=== PATIENT | male | born 1955 | race Two or more races ===

== ENCOUNTER → 2019-04-15 | Outpatient (CLI) | payer BC ==
[2019-04-15 10:30] LABS: Basophils # (auto) 0 uL; Basophils % (auto) 0.8 % (0.0-2.0); Eosinophils # (auto) 0.2 uL; Eosinophils % (auto) 4.9 % (0.0-7.0); Hematocrit 45.3 % (41.0-53.0); Hemoglobin 15.5 g/dL (13.5-17.5); Lymphocytes % (auto) 45.1 % (10.0-50.0); Mean Corpuscular Hemoglobin 31.5 pg (28.0-32.0); Mean Corpuscular Hgb Conc. 34.3 g/dL (32.0-36.0); Mean Corpuscular Volume 92.1 fL (80.0-100.0); Monocytes # (auto) 0.6 uL; Monocytes % (auto) 13.1 % (0.0-12.0); Neutrophils # (auto) 1.6 uL; Neutrophils % (auto) 36.1 % (37.0-80.0); Nucleated Red Blood Cells % 0.1 %; Platelet Count (auto) 178 10^3/uL (140-450); Red Blood Cells 4.92 10^6/uL (4.5-5.90); Red Cell Distribution Width 13.7 % (11.8-14.3); White Blood Cell 4.4 10^3/uL (4.4-10.8)
[2019-04-15 11:06] LABS: Urine Bacteria NONE SEEN /hpf (None Seen); Urine Blood Negative /uL (Negative); Urine WBC 1 /hpf (0 - 3)
[2019-04-15 11:08] LABS: Potassium 3.7 mmol/L (3.5-5.1)
[2019-04-15 11:21] LABS: BUN/Creatinine Ratio 22.2; Bilirubin, Total 0.8 mg/dL (0.2-1.0); Calcium 9.1 mg/dL (8.5-10.1); Total Protein 7.8 g/dL (6.4-8.2)
== END | disposition home or self-care (01) ==
LOC: LAB 08:34
PROVIDERS: ATTEND Nurse Practitioner
DX: Z00.00 Encounter for general adult medical examination without abnormal findings (principal); E78.5 Hyperlipidemia, unspecified
CPT/HCPCS: 36415; 80053; 80061; 81001; 82306; 83036; 84153; 84443; 85025

== ENCOUNTER → 2019-09-24 | Outpatient (CLI) | payer BC ==
[2019-09-24 09:26] LABS: Basophils # (auto) 0.1 10 ^3/uL (0-0.2); Basophils % (auto) 1.2 % (0.0-2.0); Eosinophils # (auto) 0.3 10 ^3/uL (0-0.8); Hematocrit 43.7 % (41.0-53.0); Hemoglobin 14.9 g/dL (13.5-17.5); Lymphocytes # (auto) 1.9 10 ^3/uL (0.4-5.4); Lymphocytes % (auto) 42.4 % (10.0-50.0); Mean Corpuscular Hgb Conc. 34.1 g/dL (32.0-36.0); Monocytes # (auto) 0.6 10 ^3/uL (0-1.3); Monocytes % (auto) 13.8 % (0.0-12.0); Neutrophils # (auto) 1.6 10 ^3/uL (1.6-8.6); Neutrophils % (auto) 36.6 % (37.0-80.0); Platelet Count (auto) 169 10^3/uL (140-450); Red Blood Cells 4.65 10^6/uL (4.5-5.90); White Blood Cell 4.4 10^3/uL (4.4-10.8)
[2019-09-24 10:23] LABS: Albumin 3.7 g/dL (3.4-5.0); Potassium 4.6 mmol/L (3.5-5.1)
[2019-09-24 10:32] LABS: BUN/Creatinine Ratio 18.4; Bilirubin, Total 0.6 mg/dL (0.2-1.0); Total Protein 7.6 g/dL (6.4-8.2)
== END | disposition home or self-care (01) ==
LOC: LAB 09:02
PROVIDERS: ATTEND Nurse Practitioner
DX: Z00.00 Encounter for general adult medical examination without abnormal findings (principal); E78.5 Hyperlipidemia, unspecified
CPT/HCPCS: 36415; 80053; 80061; 82270; 84443; 85025

== ENCOUNTER 2020-07-25 16:44 | Inpatient (IN) | payer BC, OTHER ==
[~2020-07-25] VITALS: Ht 172.7 cm; Wt 183.0 kg
[2020-07-25] MEDS ORDERED: SODIUM CHLORIDE 0.9% 1,000 ML IVB ONE (17:30)
[2020-07-25 19:41] LABS: Basophils # (auto) 0 10 ^3/uL (0-0.2); Eosinophils # (auto) 0 10 ^3/uL (0-0.8); Hematocrit 46.8 % (41.0-53.0); Hemoglobin 15.8 g/dL (13.5-17.5); Lymphocytes # (auto) 0.5 10 ^3/uL (0.4-5.4); Lymphocytes % (auto) 3.4 % (10.0-50.0); Mean Corpuscular Hemoglobin 31.8 pg (28.0-32.0); Mean Corpuscular Hgb Conc. 33.8 g/dL (32.0-36.0); Mean Corpuscular Volume 94.1 fL (80.0-100.0); Monocytes # (auto) 1.9 10 ^3/uL (0-1.3); Monocytes % (auto) 12.4 % (0.0-12.0); Neutrophils # (auto) 13.1 10 ^3/uL (1.6-8.6); Neutrophils % (auto) 84.2 % (37.0-80.0); Platelet Count (auto) 196 10^3/uL (140-450); Red Blood Cells 4.97 10^6/uL (4.5-5.90); Red Cell Distribution Width 14.1 % (11.8-14.3); White Blood Cell 15.5 10^3/uL (4.4-10.8)
[2020-07-25 19:47] LABS: Albumin 3.8 g/dL (3.4-5.0); Anion Gap 6 (5-15); Blood Urea Nitrogen 24 mg/dL (7-18); Calcium 9.4 mg/dL (8.5-10.1); Carbon Dioxide 32 mmol/L (21-32); Chloride 97 mmol/L (98-107); Glucose 134 mg/dL (74-106); Magnesium 2.3 mg/dL (1.6-2.6); Potassium 3.6 mmol/L (3.5-5.1); Sodium 135 mmol/L (136-145)
[2020-07-25 19:55] LABS: Alanine Aminotransferase 115 U/L (16-61); Alkaline Phosphatase 164 U/L (45-117); Aspartate Aminotransferase 59 U/L (15-37); BUN/Creatinine Ratio 22.2; Bilirubin, Total 4.1 mg/dL (0.2-1.0); GFR African American 88 mL/min; GFR Non-African American 72 mL/min; Total Protein 9.2 g/dL (6.4-8.2)
[2020-07-25 20:21] LABS: INR 1.08 (0.9-1.15); Partial Thromboplastin Time 28.1 sec (23.0-31.2)
[2020-07-25] MEDS ORDERED: ONDANSETRON HCL 4 MG/2 ML VIAL IV ONE (20:45)
[2020-07-25] MEDS ORDERED: cefTRIAXone 1GM/50ML D5W 50 ML IV ONE (20:45)
[2020-07-25] MEDS ORDERED: MORPHINE SULF INJ 2 MG/ML SYRINGE 1ML IV ONE (20:45)
[2020-07-26] MEDS ORDERED: HYDROcodone-ACET 5/325MG TAB PO PRN (01:15)
[2020-07-26] MEDS ORDERED: DOCUSATE SOD 100 MG CAP PO PRN (01:15)
[2020-07-26] MEDS ORDERED: NITROGLYCERIN 0.4 MG SL TAB SL PRN (01:15)
[2020-07-26] MEDS ORDERED: ONDANSETRON HCL 4 MG/2 ML VIAL IV PRN (01:15)
[2020-07-26] MEDS ORDERED: ACETAMINOPHEN 325 MG TAB PO PRN (01:15)
[2020-07-26] MEDS ORDERED: MORPHINE SULFATE 4 MG/ML SYR/VIAL IV PRN (01:15)
[2020-07-26] MEDS ORDERED: MORPHINE SULF INJ 2 MG/ML SYRINGE 1ML IV PRN (01:15)
[2020-07-26] MEDS ORDERED: D5W/SOD CHLO 0.9% 1,000 ML IV SCH (01:15)
[2020-07-26 07:07] LABS: Basophils # (auto) 0 10 ^3/uL (0-0.2); Basophils % (auto) 0.1 % (0.0-2.0); Eosinophils # (auto) 0 10 ^3/uL (0-0.8); Eosinophils % (auto) 0.1 % (0.0-7.0); Hematocrit 43.6 % (41.0-53.0); Hemoglobin 15.1 g/dL (13.5-17.5); Lymphocytes # (auto) 0.7 10 ^3/uL (0.4-5.4); Mean Corpuscular Hemoglobin 32.3 pg (28.0-32.0); Mean Corpuscular Hgb Conc. 34.5 g/dL (32.0-36.0); Mean Corpuscular Volume 93.6 fL (80.0-100.0); Monocytes # (auto) 1.9 10 ^3/uL (0-1.3); Monocytes % (auto) 14.2 % (0.0-12.0); Neutrophils # (auto) 10.6 10 ^3/uL (1.6-8.6); Neutrophils % (auto) 80.6 % (37.0-80.0); Platelet Count (auto) 174 10^3/uL (140-450); Red Blood Cells 4.66 10^6/uL (4.5-5.90); White Blood Cell 13.1 10^3/uL (4.4-10.8)
[2020-07-26 07:41] LABS: Albumin 3.3 g/dL (3.4-5.0); Calcium 8.9 mg/dL (8.5-10.1); Potassium 3.3 mmol/L (3.5-5.1)
[2020-07-26 07:46] LABS: BUN/Creatinine Ratio 20.2; Bilirubin, Total 8.3 mg/dL (0.2-1.0); Total Protein 7.8 g/dL (6.4-8.2)
[2020-07-26] MEDS: cefTRIAXone 1GM/50ML D5W 50 ML IV SCH (09:30)
[2020-07-26] MEDS ORDERED: ENOXAPARIN SOD 40 MG/0.4 ML SYRINGE SC SCH (10:00)
[2020-07-26] MEDS ORDERED: FAMOTIDINE (10MG/ML) 2ML VL IV SCH (10:00)
[2020-07-26] MEDS ORDERED: POTASSIUM CHL 20 Meq TABLET PO ONE (10:15)
[2020-07-26] MEDS: FAMOTIDINE (10MG/ML) 2ML VL IV SCH (12:07)
[2020-07-26] MEDS: HEPARIN SODIUM (PORCINE) 5000 UNITS/ML 1ML VIAL SC SCH ×2 (12:07→23:41)
[2020-07-26] MEDS: metroNIDAZOLE 500MG/100ML 100 ML IV SCH ×2 (14:32→23:42)
[2020-07-27] MEDS: D5W/SOD CHL 0.45%/KCL 40MEQ 1,000 ML IV SCH ×3 (05:13→21:36)
[2020-07-27] MEDS: metroNIDAZOLE 500MG/100ML 100 ML IV SCH ×3 (05:13→20:04)
[2020-07-27 06:18] LABS: Basophils # (auto) 0.1 10 ^3/uL (0-0.2); Basophils % (auto) 0.7 % (0.0-2.0); Eosinophils # (auto) 0.1 10 ^3/uL (0-0.8); Eosinophils % (auto) 1.6 % (0.0-7.0); Hematocrit 41.8 % (41.0-53.0); Hemoglobin 14.2 g/dL (13.5-17.5); Lymphocytes # (auto) 0.5 10 ^3/uL (0.4-5.4); Lymphocytes % (auto) 6.7 % (10.0-50.0); Mean Corpuscular Hemoglobin 32.2 pg (28.0-32.0); Mean Corpuscular Volume 94.7 fL (80.0-100.0); Monocytes # (auto) 1.1 10 ^3/uL (0-1.3); Monocytes % (auto) 14.4 % (0.0-12.0); Neutrophils # (auto) 5.9 10 ^3/uL (1.6-8.6); Neutrophils % (auto) 76.6 % (37.0-80.0); Platelet Count (auto) 166 10^3/uL (140-450); Red Blood Cells 4.42 10^6/uL (4.5-5.90); Red Cell Distribution Width 14.1 % (11.8-14.3); White Blood Cell 7.7 10^3/uL (4.4-10.8)
[2020-07-27 06:55] LABS: Potassium 3.2 mmol/L (3.5-5.1)
[2020-07-27 07:02] LABS: Albumin 2.8 g/dL (3.4-5.0); BUN/Creatinine Ratio 28.2; Bilirubin, Total 4.6 mg/dL (0.2-1.0); Calcium 9.1 mg/dL (8.5-10.1); Total Protein 7.4 g/dL (6.4-8.2)
[2020-07-27] MEDS: cefTRIAXone 1GM/50ML D5W 50 ML IV SCH (09:00)
[2020-07-27] MEDS: HEPARIN SODIUM (PORCINE) 5000 UNITS/ML 1ML VIAL SC SCH ×2 (10:56→21:37)
[2020-07-27] MEDS: FAMOTIDINE (10MG/ML) 2ML VL IV SCH (11:00)
[2020-07-27 19:09] LABS: INR 1.01 (0.9-1.15); Partial Thromboplastin Time 28.2 sec (23.0-31.2)
[2020-07-27 20:00] VITALS: BP 117/76
[2020-07-27 22:00] VITALS: BP 117/74
[2020-07-28] MEDS: metroNIDAZOLE 500MG/100ML 100 ML IV SCH ×3 (04:07→20:07)
[2020-07-28 05:00] VITALS: BP 104/69
[2020-07-28] MEDS: D5W/SOD CHL 0.45%/KCL 40MEQ 1,000 ML IV SCH ×3 (05:21→21:49)
[2020-07-28] MEDS ORDERED: POVIDONE IODINE 10 % TOPICAL OINT 30GM TOP ONE (07:41)
[2020-07-28 08:00] VITALS: BP 93/58
[2020-07-28] MEDS: cefTRIAXone 1GM/50ML D5W 50 ML IV SCH (08:37)
[2020-07-28] MEDS: FAMOTIDINE (10MG/ML) 2ML VL IV SCH (10:00)
[2020-07-28] MEDS: HEPARIN SODIUM (PORCINE) 5000 UNITS/ML 1ML VIAL SC SCH ×2 (10:00→21:08)
[2020-07-28] MEDS ORDERED: BUPIVACAINE 0.5% MPF INJ 30ML SDV IJ ONE (10:38)
[2020-07-28] MEDS ORDERED: ceFAZolin 1GM/50ML 50 ML IV ONE (11:12)
[2020-07-28] MEDS ORDERED: HYDROmorphone HCL 2 MG/ML VL IV PRN ×2 (11:15)
[2020-07-28] MEDS ORDERED: ONDANSETRON HCL 4 MG/2 ML VIAL IV PRN (11:15)
[2020-07-28] MEDS ORDERED: NALOXONE HCL 0.4 MG/ML VIAL IV PRN (11:15)
[2020-07-28] MEDS ORDERED: SUCCINYLCHOLINE CHLORIDE 20 MG/ML 10ML VIAL IV ONE (11:26)
[2020-07-28] MEDS ORDERED: LIDOCAINE 1% (LOCAL ANESTH.) PF 5ml SDV ONE (11:26)
[2020-07-28] MEDS ORDERED: MIDAZOLAM HCL 1MG/1ML-2 ML VIAL ONE (11:28)
[2020-07-28] MEDS ORDERED: fentaNYL CITRATE 100 MCG/2 ML VL ONE (12:04)
[2020-07-28] MEDS ORDERED: GLYCOPYRROLATE 0.2 MG/ML 1ML VIAL ONE (12:43)
[2020-07-28] MEDS ORDERED: NEOSTIGMINE 1 MG/ML INJ (10mg/10ML VIAL) ONE (12:43)
[2020-07-28 16:00] VITALS: BP 112/76
[2020-07-28 20:00] VITALS: BP 102/65
[2020-07-28 21:00] VITALS: BP 102/65
[2020-07-29] MEDS: metroNIDAZOLE 500MG/100ML 100 ML IV SCH ×3 (04:16→19:47)
[2020-07-29] MEDS: D5W/SOD CHL 0.45%/KCL 40MEQ 1,000 ML IV SCH ×3 (04:22→23:35)
[2020-07-29 05:00] VITALS: BP 113/74
[2020-07-29 08:00] VITALS: BP 118/70
[2020-07-29] MEDS: cefTRIAXone 1GM/50ML D5W 50 ML IV SCH (09:30)
[2020-07-29] MEDS: FAMOTIDINE (10MG/ML) 2ML VL IV SCH (09:43)
[2020-07-29] MEDS: HEPARIN SODIUM (PORCINE) 5000 UNITS/ML 1ML VIAL SC SCH ×2 (09:54→22:33)
[2020-07-29 16:00] VITALS: BP 121/73
[2020-07-29 22:00] VITALS: BP 122/76
[2020-07-30] MEDS: metroNIDAZOLE 500MG/100ML 100 ML IV SCH ×2 (03:35→13:20)
[2020-07-30 05:00] VITALS: BP 126/78
[2020-07-30] MEDS: D5W/SOD CHL 0.45%/KCL 40MEQ 1,000 ML IV SCH ×2 (06:51→16:15)
[2020-07-30 08:17] VITALS: BP 125/87
[2020-07-30] MEDS: cefTRIAXone 1GM/50ML D5W 50 ML IV SCH (09:22)
[2020-07-30] MEDS: FAMOTIDINE (10MG/ML) 2ML VL IV SCH (09:23)
[2020-07-30] MEDS: HEPARIN SODIUM (PORCINE) 5000 UNITS/ML 1ML VIAL SC SCH (09:35)
[2020-07-30 15:22] VITALS: BP 125/87
== END 2020-07-30 17:15 | disposition home or self-care (01) | DRG 417 ==
LOC: ER 16:46 → OVERFLOW 07-26 01:06 → TELE-CENTR 07-27 17:53
PROVIDERS: ADMIT Nurse Practitioner Family; ATTEND Family Medicine
PROC: 0FT44ZZ Resection of Gallbladder, Percutaneous Endoscopic Approach (ICD-10-PCS; principal; 2020-07-28 11:54)
DX: K80.00 Calculus of gallbladder with acute cholecystitis without obstruction (principal); N17.0 Acute kidney failure with tubular necrosis; E86.0 Dehydration; R73.9 Hyperglycemia, unspecified; E78.00 Pure hypercholesterolemia, unspecified; E78.5 Hyperlipidemia, unspecified; E66.01 Morbid (severe) obesity due to excess calories; K76.0 Fatty (change of) liver, not elsewhere classified; Z20.822 Contact with and (suspected) exposure to COVID-19; Z82.49 Family history of ischemic heart disease and other diseases of the circulatory system
CPT/HCPCS: 36415; 71045; 74176; 74181; 76705; 78226; 80053; 82247; 83036; 83690; 83735; 84484; 85025; 85610; 85730; 86850; 86900; 86901; 93005; 93306; 96365; 96366; 96376; G0378; J0330; J0690; J0696; J2250; J2405; J3490; J7042

== ENCOUNTER → 2020-07-26 | Outpatient (CLI) | payer BC | END | disposition home or self-care (01) | LOC: LAB 15:53 | PROVIDERS: ATTEND Nurse Practitioner Family | DX: Z20.822 Contact with and (suspected) exposure to COVID-19 (principal); N39.0 Urinary tract infection, site not specified | CPT/HCPCS: 87426 ==

== ENCOUNTER → 2020-07-27 | Outpatient (CLI) | payer BC | END | disposition home or self-care (01) | LOC: LAB 06:58 | PROVIDERS: ATTEND Nurse Practitioner Family | DX: N39.0 Urinary tract infection, site not specified (principal) | CPT/HCPCS: 87086 ==

== ENCOUNTER → 2020-11-27 | Outpatient (CLI) | payer BC ==
[2020-11-27 08:57] LABS: Basophils # (auto) 0.1 10 ^3/uL (0-0.2); Basophils % (auto) 1.7 % (0.0-2.0); Eosinophils # (auto) 0.4 10 ^3/uL (0-0.8); Eosinophils % (auto) 7.8 % (0.0-7.0); Hematocrit 45.1 % (41.0-53.0); Hemoglobin 15.2 g/dL (13.5-17.5); Lymphocytes # (auto) 1.5 10 ^3/uL (0.4-5.4); Lymphocytes % (auto) 30.3 % (10.0-50.0); Mean Corpuscular Hemoglobin 31.6 pg (28.0-32.0); Mean Corpuscular Hgb Conc. 33.8 g/dL (32.0-36.0); Mean Corpuscular Volume 93.5 fL (80.0-100.0); Monocytes # (auto) 0.6 10 ^3/uL (0-1.3); Monocytes % (auto) 11.2 % (0.0-12.0); Neutrophils # (auto) 2.4 10 ^3/uL (1.6-8.6); Nucleated Red Blood Cells % 0.1 %; Platelet Count (auto) 186 10^3/uL (140-450); Red Blood Cells 4.83 10^6/uL (4.5-5.90); Red Cell Distribution Width 14.1 % (11.8-14.3)
[2020-11-27 08:59] LABS: Urine Bacteria NONE SEEN /hpf (None Seen); Urine Blood TRACE /uL (Negative); Urine Mucus FEW (None Seen); Urine Specific Gravity 1.021 (1.001-1.035); Urine WBC 2 /hpf (0 - 3)
[2020-11-27 09:32] LABS: Albumin 3.7 g/dL (3.4-5.0); Calcium 8.8 mg/dL (8.5-10.1); Potassium 3.8 mmol/L (3.5-5.1)
[2020-11-27 09:38] LABS: BUN/Creatinine Ratio 19.8; Bilirubin, Total 0.7 mg/dL (0.2-1.0); Total Protein 7.6 g/dL (6.4-8.2)
== END | disposition home or self-care (01) ==
LOC: LAB 08:46
PROVIDERS: ATTEND Nurse Practitioner
DX: I10 Essential (primary) hypertension (principal); E78.5 Hyperlipidemia, unspecified
CPT/HCPCS: 36415; 80053; 80061; 81001; 85025

== ENCOUNTER → 2022-02-11 | Outpatient (CLI) | payer OTHER ==
[2022-02-11 09:39] LABS: Urine Bacteria NONE SEEN /hpf (None Seen); Urine Blood TRACE /uL (Negative); Urine Specific Gravity 1.021 (1.001-1.035); Urine WBC 9 /hpf (0 - 3)
[2022-02-11 09:53] LABS: Basophils # (auto) 0 10 ^3/uL (0-0.2); Eosinophils # (auto) 0.2 10 ^3/uL (0-0.8); Hematocrit 44.2 % (41.0-53.0); Hemoglobin 14.8 g/dL (13.5-17.5); Lymphocytes # (auto) 1.7 10 ^3/uL (0.4-5.4); Lymphocytes % (auto) 37.1 % (10.0-50.0); Mean Corpuscular Hemoglobin 31.5 pg (28.0-32.0); Mean Corpuscular Hgb Conc. 33.5 g/dL (32.0-36.0); Mean Corpuscular Volume 93.9 fL (80.0-100.0); Monocytes # (auto) 0.6 10 ^3/uL (0-1.3); Monocytes % (auto) 13.8 % (0.0-12.0); Neutrophils % (auto) 43.1 % (37.0-80.0); Nucleated Red Blood Cells % 0.2 %; Red Blood Cells 4.71 10^6/uL (4.5-5.90); Red Cell Distribution Width 13.8 % (11.8-14.3); White Blood Cell 4.5 10^3/uL (4.4-10.8)
[2022-02-11 10:12] LABS: Albumin 3.6 g/dL (3.4-5.0); Calcium 8.7 mg/dL (8.5-10.1); Potassium 3.9 mmol/L (3.5-5.1)
[2022-02-11 10:16] LABS: Bilirubin, Total 0.7 mg/dL (0.2-1.0); Total Protein 7.5 g/dL (6.4-8.2)
== END | disposition home or self-care (01) ==
LOC: LAB 09:15
PROVIDERS: ATTEND Nurse Practitioner
DX: E78.5 Hyperlipidemia, unspecified (principal); I10 Essential (primary) hypertension
CPT/HCPCS: 36415; 80053; 80061; 81001; 84443; 85025

== ENCOUNTER → 2022-05-17 | Outpatient (CLI) | payer OTHER ==
[2022-05-17 14:22] LABS: Urine Bacteria NONE SEEN /hpf (None Seen); Urine Blood Negative /uL (Negative); Urine Specific Gravity 1.021 (1.001-1.035); Urine WBC 1 /hpf (0 - 3)
== END | disposition home or self-care (01) ==
LOC: LAB 13:13
PROVIDERS: ATTEND Nurse Practitioner
DX: N39.0 Urinary tract infection, site not specified (principal)
CPT/HCPCS: 81001

== ENCOUNTER → 2023-01-25 | Outpatient (CLI) | payer OTHER ==
[2023-01-25 09:26] LABS: Basophils # (auto) 0.1 10 ^3/uL (0-0.2); Basophils % (auto) 1.9 % (0.0-2.0); Eosinophils # (auto) 0.2 10 ^3/uL (0-0.8); Hematocrit 44.9 % (41.0-53.0); Hemoglobin 14.9 g/dL (13.5-17.5); Lymphocytes # (auto) 1.7 10 ^3/uL (0.4-5.4); Lymphocytes % (auto) 40.5 % (10.0-50.0); Mean Corpuscular Hemoglobin 31.2 pg (28.0-32.0); Mean Corpuscular Hgb Conc. 33.3 g/dL (32.0-36.0); Mean Corpuscular Volume 93.7 fL (80.0-100.0); Monocytes # (auto) 0.6 10 ^3/uL (0-1.3); Monocytes % (auto) 13.4 % (0.0-12.0); Neutrophils # (auto) 1.6 10 ^3/uL (1.6-8.6); Neutrophils % (auto) 39.2 % (37.0-80.0); Nucleated Red Blood Cells % 0.1 %; Red Blood Cells 4.79 10^6/uL (4.5-5.90); Red Cell Distribution Width 13.8 % (11.8-14.3); White Blood Cell 4.1 10^3/uL (4.4-10.8)
[2023-01-25 09:36] LABS: Urine Bacteria NONE SEEN /hpf (None Seen); Urine Blood Negative /uL (Negative); Urine Mucus FEW (None Seen); Urine Specific Gravity 1.024 (1.001-1.035); Urine WBC 3 /hpf (0 - 3)
[2023-01-25 10:47] LABS: Potassium 4.3 mmol/L (3.5-5.1)
[2023-01-25 10:59] LABS: Albumin 3.9 g/dL (3.4-5.0); BUN/Creatinine Ratio 19.6 (10.0-20.0); Bilirubin, Total 0.8 mg/dL (0.2-1.0); Calcium 9.2 mg/dL (8.5-10.1); Total Protein 7.8 g/dL (6.4-8.2)
== END | disposition home or self-care (01) ==
LOC: LAB 09:10
PROVIDERS: ATTEND Nurse Practitioner
DX: I10 Essential (primary) hypertension (principal); E78.5 Hyperlipidemia, unspecified
CPT/HCPCS: 36415; 80053; 80061; 81001; 82270; 84153; 84443; 85025

== ENCOUNTER → 2024-07-25 | Outpatient (CLI) | payer OTHER | END | disposition home or self-care (01) | LOC: LAB 09:09 | PROVIDERS: ATTEND Nurse Practitioner | DX: Z12.11 Encounter for screening for malignant neoplasm of colon (principal) | CPT/HCPCS: 82270 ==

== ENCOUNTER → 2024-10-25 | Day surgery (SDC) | payer OTHER ==
[2024-10-22 08:44] LABS: Basophils # (auto) 0.1 10 ^3/uL (0-0.2); Basophils % (auto) 1.8 % (0.0-2.0); Eosinophils # (auto) 0.5 10 ^3/uL (0-0.8); Eosinophils % (auto) 10.2 % (0.0-7.0); Hematocrit 44.9 % (41.0-53.0); Hemoglobin 15.4 g/dL (13.5-17.5); Lymphocytes # (auto) 1.7 10 ^3/uL (0.4-5.4); Lymphocytes % (auto) 33.6 % (10.0-50.0); Mean Corpuscular Hgb Conc. 34.4 g/dL (32.0-36.0); Monocytes # (auto) 0.7 10 ^3/uL (0-1.3); Neutrophils # (auto) 2.1 10 ^3/uL (1.6-8.6); Neutrophils % (auto) 41.4 % (37.0-80.0); Platelet Count (auto) 173 10^3/uL (140-450); Red Blood Cells 4.83 10^6/uL (4.5-5.90); Red Cell Distribution Width 13.6 % (11.8-14.3); White Blood Cell 5.2 10^3/uL (4.4-10.8)
[2024-10-22 08:58] LABS: Alanine Aminotransferase 15 U/L (7-40); Alkaline Phosphatase 113 U/L (46-116); Anion Gap 6 (5-15); Aspartate Aminotransferase 16 U/L (13-40); BUN/Creatinine Ratio 17.1 (10.0-20.0); Blood Urea Nitrogen 18 mg/dL (9-23); Calcium 9.8 mg/dL (8.7-10.4); Carbon Dioxide 28 mmol/L (20-31); Chloride 106 mmol/L (98-107); Sodium 140 mmol/L (136-145); Total Protein 7.6 g/dL (5.7-8.2)
[2024-10-22 08:59] LABS: Albumin 4.8 g/dL (3.2-4.8); Bilirubin, Total 0.7 mg/dL (0.2-1.0); Glucose 110 mg/dL (74-106)
[2024-10-22 09:04] LABS: INR 0.97 (0.9-1.15); Partial Thromboplastin Time 29.8 SEC (24.5-34.5); Prothrombin Time 10.3 sec (9.3-11.8)
[~2024-10-25] VITALS: Ht 172.7 cm; Wt 79.4 kg
[~2024-10-25] MED LIST: ATOR10TA52 PO; SODIUM CHLORIDE LOCK 10 ML ONE
[2024-10-25 13:09] VITALS: O2SAT 100
[2024-10-25] MEDS: diphenhdrAMINE HCL 50 MG/1 ML VL ONE (13:10)
[2024-10-25] MEDS: MIDAZOLAM HCL 5 MG/ML-1ML VIAL ONE (13:10)
[2024-10-25] MEDS: fentaNYL CITRATE 100 MCG/2 ML VL ONE (13:10)
[2024-10-25 13:45] VITALS: PULSE 69; RESP 17; TEMP 97.9; O2SAT 97
--- NOTE | 2024-10-25 14:04 | DVHOP2 ---
Operative Report DATE OF OPERATION: 10/25/24 PROCEDURE: Colonoscopy with hot snare polypectomy and Fernanda ink tattoo. PREOPERATIVE INDICATION: The patient is a 69 -year-old male undergoing colonoscopy for colon cancer screening POSTOPERATIVE DIAGNOSES: 1. Patient had a partially circumferential sigmoid polypoid growth that appeared to be suspicious for an early malignancy from which biopsies were obtained and the proximal and distal margins were injected with Fernanda ink 2. Patient had a 2.5 cm ascending colon polyp that was seen and removed via hot snare polypectomy and the specimens were retrieved 3. Patient had a 3-4 mm benign-appearing transverse colon polyp that was seen and removed by hot snare polypectomy 4. There was another 3-4 mm benign-appearing descending colon polyp that was seen and removed by hot snare polypectomy and the specimens were retrieved 5. 1+ internal hemorrhoids otherwise normal examination up to the cecum PROCEDURE PERFORMED BY: Romelia Max M.D. SCOPE: Olympus videocolonoscope. ASA CLASS: 2 PREOPERATIVE MEDICATIONS: Versed 5 mg, Fentanyl 100 mcg, Benadryl 50 mg PROCEDURE IN DETAIL: After obtaining an informed consent, the patient was placed on left lateral decubitus position. He was then sedated with the above medications. A rectal examination was performed that was normal. The colonoscope was then passed through the anus into the rectosigmoid and through the descending, transverse, and ascending colon up to the cecum with visualization of the appendiceal orifice, base of the cecum and the ileocecal valve. The colonoscope was then withdrawn. In the ascending colon there was a 2.5 cm benign-appearing polyp This was removed completely via hot snare polypectomy and the specimens were retrieved by pulling the colonoscope out The colonoscope was then passed back into the anus into the rectosigmoid and through the descending transverse colon up to the ascending colon The colonoscope was then withdrawn. In the mid transverse colon there was a 3-4 mm benign-appearing polyp that was seen and removed by hot snare polypectomy In the descending colon there was another 3-4 mm benign-appearing polyp that was seen and removed by hot snare polypectomy In the mid sigmoid at about 20 cm above the anal verge there was a partially circumferential polypoid growth which was bile lobe with central ulceration This was suspicious for an early malignant transformation of a polyp. Multiple biopsies were obtained and the proximal and distal margins were injected with Fernanda ink On retroflexion and straight on view he had 1+ internal hemorrhoids. The patient tolerated the procedure well without difficulty. WITHDRAWAL TIME: 17 minutes QUALITY OF THE PREP: [place] Bowel Prep score: 9. COMPLICATIONS : None SPECIMENS: Ascending colon polyp Transverse colon polyp Descending colon polyp Sigmoid colon polypoid growth biopsies DISPOSITION: Stable D/C to home PLAN: 1. Repeat colonoscopy base on biopsy result in 1-2 years 2. Resume GI soft diet advance as tolerated 3. Await biopsy results 4. Surgical referral for sigmoid resection 5. Check CT scan of the abdomen pelvis CEA level 6. Hold aspirin NSAIDs for 5-7 days ROMELIA MAX MD Oct 25, 2024 14:04
[2024-10-25 14:30] VITALS: BP 105/71; PULSE 63; RESP 17; O2SAT 95
== END | disposition home or self-care (01) ==
LOC: GI 09:25
PROVIDERS: ATTEND Internal Medicine Gastroenterology
DX: Z12.11 Encounter for screening for malignant neoplasm of colon (principal); D12.2 Benign neoplasm of ascending colon; D12.3 Benign neoplasm of transverse colon; D12.4 Benign neoplasm of descending colon; D12.5 Benign neoplasm of sigmoid colon; K64.8 Other hemorrhoids; K63.3 Ulcer of intestine; E78.00 Pure hypercholesterolemia, unspecified; Z90.49 Acquired absence of other specified parts of digestive tract; Z83.3 Family history of diabetes mellitus; Z79.899 Other long term (current) drug therapy
CPT/HCPCS: 36415; 45380; 45381; 45385; 80053; 85025; 85610; 85730; 88305; J1200; J2250; J3010; J7030; 99152; 99153

== ENCOUNTER → 2024-11-04 | Outpatient (CLI) | payer OTHER ==
[~2024-11-04] MED LIST changes: -SODIUM CHLORIDE LOCK 10 ML ONE
== END | disposition home or self-care (01) ==
LOC: LAB 07:35
PROVIDERS: ATTEND Internal Medicine Gastroenterology
DX: C18.7 Malignant neoplasm of sigmoid colon (principal)
CPT/HCPCS: 36415; 82565; 84520

== ENCOUNTER → 2024-11-11 | Outpatient (CLI) | payer OTHER ==
[2024-11-11 10:47] LABS: Basophils # (auto) 0.1 10 ^3/uL (0-0.2); Basophils % (auto) 1.8 % (0.0-2.0); Eosinophils # (auto) 0.3 10 ^3/uL (0-0.8); Eosinophils % (auto) 6.5 % (0.0-7.0); Hematocrit 46.8 % (41.0-53.0); Hemoglobin 15.9 g/dL (13.5-17.5); Lymphocytes # (auto) 1.6 10 ^3/uL (0.4-5.4); Mean Corpuscular Hemoglobin 31.3 pg (28.0-32.0); Mean Corpuscular Hgb Conc. 33.9 g/dL (32.0-36.0); Mean Corpuscular Volume 92.4 fL (80.0-100.0); Monocytes # (auto) 0.6 10 ^3/uL (0-1.3); Monocytes % (auto) 14.3 % (0.0-12.0); Neutrophils # (auto) 1.6 10 ^3/uL (1.6-8.6); Neutrophils % (auto) 38.4 % (37.0-80.0); Platelet Count (auto) 207 10^3/uL (140-450); Red Blood Cells 5.07 10^6/uL (4.5-5.90); White Blood Cell 4.2 10^3/uL (4.4-10.8)
[2024-11-11 11:06] LABS: Prostate Specific Antigen 2.46 ng/mL (0.0-4.0)
[2024-11-11 11:09] LABS: Alanine Aminotransferase 13 U/L (7-40); Albumin 4.9 g/dL (3.2-4.8); Alkaline Phosphatase 116 U/L (46-116); Anion Gap 8 (5-15); Aspartate Aminotransferase 16 U/L (13-40); BUN/Creatinine Ratio 15.1 (10.0-20.0); Bilirubin, Total 0.7 mg/dL (0.2-1.0); Blood Urea Nitrogen 14 mg/dL (9-23); Calcium 10.2 mg/dL (8.7-10.4); Carbon Dioxide 29 mmol/L (20-31); Carcinoembryonic Antigen 2.93 ng/mL (<=5.0); Chloride 101 mmol/L (98-107); Glucose 81 mg/dL (74-106); Potassium 4.3 mmol/L (3.5-5.1); Sodium 138 mmol/L (136-145); Total Protein 8.1 g/dL (5.7-8.2)
== END | disposition home or self-care (01) ==
LOC: LAB 10:14
PROVIDERS: ATTEND Student in an Organized Health Care Education/Training Program
DX: C18.7 Malignant neoplasm of sigmoid colon (principal)
CPT/HCPCS: 36415; 80053; 82378; 84153; 85025

== ENCOUNTER 2024-11-15 06:05 | Inpatient (IN) | payer OTHER ==
[2024-11-14 10:18] LABS: Urine Bacteria None Seen /hpf (None Seen)
[2024-11-14 10:30] LABS: Basophils # (auto) 0 10 ^3/uL (0-0.2); Basophils % (auto) 0.6 % (0.0-2.0); Eosinophils # (auto) 0.3 10 ^3/uL (0-0.8); Eosinophils % (auto) 4.5 % (0.0-7.0); Hematocrit 48.6 % (41.0-53.0); Hemoglobin 16.4 g/dL (13.5-17.5); Lymphocytes # (auto) 1.4 10 ^3/uL (0.4-5.4); Lymphocytes % (auto) 20.3 % (10.0-50.0); Mean Corpuscular Hemoglobin 31.1 pg (28.0-32.0); Mean Corpuscular Hgb Conc. 33.8 g/dL (32.0-36.0); Mean Corpuscular Volume 92.1 fL (80.0-100.0); Monocytes # (auto) 1.2 10 ^3/uL (0-1.3); Monocytes % (auto) 17.2 % (0.0-12.0); Neutrophils # (auto) 3.9 10 ^3/uL (1.6-8.6); Neutrophils % (auto) 57.4 % (37.0-80.0); Nucleated Red Blood Cells % 0.1 %; Platelet Count (auto) 198 10^3/uL (140-450); Red Blood Cells 5.28 10^6/uL (4.5-5.90); White Blood Cell 6.8 10^3/uL (4.4-10.8)
[2024-11-14 10:40] LABS: Urine Blood TRACE /uL (Negative); Urine Clarity Clear (Clear); Urine Color Yellow (Yellow); Urine Mucus FEW (None Seen); Urine Protein, UAD Negative (Negative); Urine Specific Gravity 1.023 (1.001-1.035); Urine Squamous Epithelial Cell FEW /hpf (<5); Urine Urobilinogen Normal (Negative); Urine WBC 1 /HPF (0-3)
[2024-11-14 10:46] LABS: INR 1.03 (0.9-1.15); Partial Thromboplastin Time 31.8 SEC (24.5-34.5); Prothrombin Time 10.9 sec (9.3-11.8)
[2024-11-14 10:56] LABS: Alanine Aminotransferase 16 U/L (7-40); Alkaline Phosphatase 131 U/L (46-116); Anion Gap 8 (5-15); Aspartate Aminotransferase 19 U/L (13-40); BUN/Creatinine Ratio 13.3 (10.0-20.0); Blood Urea Nitrogen 14 mg/dL (9-23); Calcium 10.3 mg/dL (8.7-10.4); Carbon Dioxide 27 mmol/L (20-31); Chloride 102 mmol/L (98-107); Glucose 88 mg/dL (74-106); Potassium 4.5 mmol/L (3.5-5.1); Sodium 137 mmol/L (136-145)
[2024-11-14 10:57] LABS: Bilirubin, Total 1.3 mg/dL (0.2-1.0)
[2024-11-15] VITALS (8 sets, daily range): BP systolic 111–121; BP diastolic 66–75; PULSE 78–90; RESP 16–20; TEMP 98.5–99.8; O2SAT 95–97
[~2024-11-15] VITALS: Ht 172.7 cm; Wt 81.6 kg
[2024-11-15] MEDS ORDERED: KETOROLAC TROMETH 30 MG/ML 1ML VIAL ONE (06:54)
[2024-11-15] MEDS ORDERED: ROCURONIUM 10MG/ML 10ML VIAL IV ONE (06:54)
[2024-11-15] MEDS ORDERED: LIDOCAINE 2% (LOCAL ANESTH.) PF 5ml SDV ONE (06:54)
[2024-11-15] MEDS ORDERED: LIDOCAINE HCL 2% TOP JELLY 5ML TOP ONE (06:54)
[2024-11-15] MEDS ORDERED: DexAMETHasone SOD PHOS 10MG/1ML VIAL INJ ONE ×2 (06:54→07:00)
[2024-11-15] MEDS ORDERED: GLYCOPYRROLATE 0.2 MG/ML 1ML VIAL ONE (06:54)
[2024-11-15] MEDS ORDERED: PROPOFOL 10 MG/ML 20 ML IV ONE (06:54)
[2024-11-15] MEDS ORDERED: ONDANSETRON HCL 4 MG/2 ML VIAL ONE (06:54)
[2024-11-15] MEDS ORDERED: SUGAMMADEX 200mg/2ml Vial (100MG/ML) IV ONE (06:57)
[2024-11-15] MEDS ORDERED: fentaNYL CITRATE 100 MCG/2 ML VL ONE (07:03)
[2024-11-15] MEDS ORDERED: KETAMINE 50mg/ML 1ml syringe ONE (07:03)
[2024-11-15] MEDS: GABAPENTIN 300 MG CAP PO ONE (07:15)
[2024-11-15] MEDS: CELECOXIB 100 MG CAP PO ONE (07:15)
[2024-11-15] MEDS: ACETAMINOPHEN IV 1000 MG/100ML (10MG/ML) IV ONE (07:15)
[2024-11-15] MEDS: BUPIVACAINE 0.25% INJ 50ML VIAL ONE (08:55)
[2024-11-15] MEDS: EPINEPHrine HCL 1 MG/1 ML AMP ONE (08:55)
[2024-11-15] MEDS: BUPIVACAINE 0.5% P/F INJ 10 ML VIAL ONE (08:56)
[2024-11-15] MEDS: LIDOCAINE W/ EPINEPHRINE 1% 20ML VIAL ONE (08:56)
[2024-11-15] MEDS: ceFAZolin 2 GM/D5W50ml 50 ML IV ONE (08:56)
--- NOTE | 2024-11-15 09:06 | DVHOP ---
DATE OF SURGERY: 11/15/2024 PREOPERATIVE DIAGNOSIS: Sigmoid cancer. POSTOPERATIVE DIAGNOSIS: Sigmoid colon cancer. SURGEON: Joseph Sousa MD PRESSURIZATION MECHANIC: Franklin Brush NP ANESTHESIA: General endotracheal, Blu Eugene MD PROCEDURES: * Exploratory laparotomy. Left hemicolectomy. * Descending colon rectostomy. DESCRIPTION OF PROCEDURE: Under general endotracheal anesthesia with the patient's skin prepped and draped, a midline incision was made and the abdomen was visually and manually explored. No evidence of metastatic disease was encountered in the right and the left lobe of the liver and the epigastric lymph nodes and the retroperitoneal lymph nodes on the mesentery. There was a palpable mass at the area that was tattooed by the endoscopist. The entire tattooed portion of the colon was included in the resection. The descending colon was mobilized by division along the white line of [place] and the rectosigmoid was mobilized by incision along the peritoneal reflection of the pelvis. The mesentery was divided between metallic clips and ligated. The bowel was transected above a right angle applied bowel clamp. The mucosa swabbed with Betadine sutures. Following removal of the specimen from the field, the anastomosis was accomplished utilizing 3-0 Prolene and 3-0 Monocryl sutures for the outer and inner layer respectively. The patient's mesenteric defect was approximated using 2-0 Monocryl suture. The bowel was returned back into its normal anatomical position. The abdomen was irrigated. Irrigant was aspirated. A 10-mm Carlo-Chung drain was placed to the vicinity but not abutting against the anastomosis and exteriorized separately and secured with a 2-0 nylon suture. Following assurance of complete hemostasis and an accurate needle and sponge count, the abdomen was closed using #1 double-stranded PDS suture and metallic skin daniel. The patient remained stable throughout the procedure, left the operating room following an accurate needle and sponge counts. The family was thoroughly informed in the waiting area. MD ZACHARY Field/JANET TID: [id number] RECEIPT: [id number]
[2024-11-15] MEDS ORDERED: NALOXONE HCL 0.4 MG/ML VIAL IV PRN (09:15)
[2024-11-15] MEDS ORDERED: HYDROmorphone HCL 2 MG/ML VL/or syr IV PRN (09:15)
[2024-11-15] MEDS ORDERED: FLUMAZENIL 0.1 MG/ML INJ 10ML MDV IV PRN (09:15)
[2024-11-15] MEDS ORDERED: fentaNYL CITRATE 100 MCG/2 ML VL IV PRN (09:15)
[2024-11-15] MEDS ORDERED: ONDANSETRON HCL 4 MG/2 ML VIAL IV PRN ×3 (09:15→10:45)
[2024-11-15] MEDS ORDERED: hydrALAZINE HCL 20 MG/ML VL IV PRN (09:15)
[2024-11-15] MEDS ORDERED: MORPHINE SULFATE INJ 2 MG/ml SYRG IV PRN ×2 (09:15→10:45)
[2024-11-15] MEDS ORDERED: ePHEDrine SULFATE 50 MG/ML AMP IV PRN (09:15)
[2024-11-15] MEDS: D5W/SOD CHL 0.45%/KCL 20MEQ 1,000 ML IV SCH (10:00)
[2024-11-15] MEDS: cefTRIAXone 2GM/50ML D5W 50 ML IV SCH (10:38)
[2024-11-15] MEDS: PANTOPRAZOLE 40 MG/10 ML VIAL INJ IV SCH (10:38)
[2024-11-15] MEDS ORDERED: HYDROcodone-ACET 5/325MG TAB PO PRN (10:45)
[2024-11-15] MEDS: SODIUM CHLORIDE 0.9% 1,000 ML IV SCH (10:45)
[2024-11-15] MEDS ORDERED: ACETAMINOPHEN 325 MG TAB PO PRN (10:45)
--- NOTE | 2024-11-15 11:22 | DVHHP2 ---
History of Present Illness Reason for Visit: Colectomy History of Present Illness Conner Tompkins is 69YO M who has a pmHx of sigmoid colon CA and left retinal detachment who presents to the hospital for colectomy. s/p left colon resection with anastomosis with general surgery today. Upon examination patient currently has 1 ISRAEL drain with sanguinous output also with abdominal binder and vertical incision. Patient reports that he does not use any DME he has with ambulation at home. He states that he is retired. He also states that he drinks occasionally, quit smoking, and does not use illicit drugs. Patient denies any chest pain, shortness of breath, fever, chills, lightheadedness, weakness, dizziness, nausea, vomiting, or diarrhea. Past Medical History Sigmoid colon cancer Past Surgical History: None Family History: DM, Other (Mom with diabetes) Smoke: Quit ALCOHOL: occassional Drugs: None Lives: with Family Domestic Violence: Neg Review of Systems Other Colectomy Allergies: Coded Allergies: NO KNOWN ALLERGIES (Unverified , 07/25/20) Medications Current Medications Medications Dose Ordered Sig/Gayle Route Start Time Stop Time Status Last Admin Dose Admin Potassium Chloride/Dextrose/ Sod Cl 1,000 ml @ 120 mls/hr Q8H20M IV 11/15/24 09:15 11/15/24 10:00 120 MLS/HR Ceftriaxone Sodium/Dextrose 50 ml @ 50 mls/hr DAILY IV 11/15/24 10:00 11/15/24 10:38 50 MLS/HR Metronidazole 100 ml @ 100 mls/hr Q8HR IV 11/15/24 14:00 Morphine Sulfate 2 mg Q3HPRN PRN IV 11/15/24 09:15 Ondansetron HCl 4 mg Q4HPRN PRN IV 11/15/24 09:15 Pantoprazole Sodium 40 mg DAILY IV 11/15/24 10:00 11/15/24 10:38 40 MG Sodium Chloride 1,000 ml @ 100 mls/hr Q10H IV 11/15/24 10:45 UNV Acetaminophen/ Hydrocodone Bitart 1 tab Q4HP PRN PO 11/15/24 10:45 UNV Ondansetron HCl 4 mg Q4HP PRN IV 11/15/24 10:45 UNV Acetaminophen 650 mg Q6HP PRN PO 11/15/24 10:45 UNV Morphine Sulfate 2 mg Q4HPRN PRN IV 11/15/24 10:45 UNV Exam Vital Signs Vital Signs Date Time Temp Pulse Resp B/P (MAP) Pulse Ox O2 Delivery O2 Flow Rate FiO2 11/15/24 06:45 97.5 96 18 137/87 (104) 95 97.5 General Appearance: Alert, Oriented X3, Cooperative, No acute distress HEENT: Atraumatic, PERRLA, EOMI, Mucous membr. moist/pink Respiratory: Clear to auscultation, Normal air movement Cardiovascular: Regular rate, Normal S1, Normal S2, No murmurs Abdominal: Soft Extremities: No clubbing, No cyanosis, No edema, Normal pulses Skin: No significant lesion Neuro: Normal speech, Normal tone, Sensation intact Psych/Mental Status: Mental status NL, Mood NL Labs/Xrays Labs Test 11/14/24 10:10 Range/Units White Blood Count 6.8 # 4.4-10.8 10^3/uL Red Blood Count 5.28 4.5-5.90 10^6/uL Hemoglobin 16.4 13.5-17.5 g/dL Hematocrit 48.6 41.0-53.0 % Mean Corpuscular Volume 92.1 80.0-100.0 fL Mean Corpuscular Hemoglobin 31.1 28.0-32.0 pg Mean Corpuscular Hemoglobin Concent 33.8 32.0-36.0 g/dL Red Cell Distribution Width 14.0 11.8-14.3 % Platelet Count 198 140-450 10^3/uL Mean Platelet Volume 8.7 6.9-10.8 fL Neutrophils (%) (Auto) 57.4 37.0-80.0 % Lymphocytes (%) (Auto) 20.3 10.0-50.0 % Monocytes (%) (Auto) 17.2 H 0.0-12.0 % Eosinophils (%) (Auto) 4.5 0.0-7.0 % Basophils (%) (Auto) 0.6 0.0-2.0 % Neutrophils # (Auto) 3.9 1.6-8.6 10 ^3/uL Lymphocytes # (Auto) 1.4 0.4-5.4 10 ^3/uL Monocytes # (Auto) 1.2 0-1.3 10 ^3/uL Eosinophils # (Auto) 0.3 0-0.8 10 ^3/uL Basophils # (Auto) 0 0-0.2 10 ^3/uL Nucleated Red Blood Cells 0.1 % Prothrombin Time 10.9 9.3-11.8 sec Prothrombin Time INR 1.03 0.9-1.15 Activated Partial Thromboplast Time 31.8 24.5-34.5 SEC Urine Color Yellow Yellow Urine Clarity Clear Clear Urine pH 5.0 5.0-9.0 Urine Specific [place] 1.023 1.001-1.035 Urine Protein Negative Negative Urine Ketones 2+ H Negative Urine Blood Trace H Negative /uL Urine Nitrite Negative Negative Urine Bilirubin Negative Negative Urine Urobilinogen Normal Negative mg/dL Urine Leukocyte Esterase Negative Negative /uL Urine RBC <1 0 - 3 /hpf Urine Microscopic WBC 1 0-3 /HPF Urine Squamous Epithelial Cells Few <5 /hpf Urine Bacteria None seen None Seen /hpf Urine Mucus Few None Seen Urine Glucose Normal Normal mg/dL Sodium Level 137 136-145 mmol/L Potassium Level 4.5 3.5-5.1 mmol/L Chloride Level 102 98-107 mmol/L Carbon Dioxide Level 27 20-31 mmol/L Anion Gap 8 5-15 Blood Urea Nitrogen 14 9-23 mg/dL Creatinine 1.05 0.700-1.30 mg/dL Glomerular Filtration Rate Calc 76 >90 mL/min BUN/Creatinine Ratio 13.3 10.0-20.0 Serum Glucose 88 74-106 mg/dL Calcium Level 10.3 8.7-10.4 mg/dL Total Bilirubin 1.3 H 0.2-1.0 mg/dL Aspartate Amino Transferase (AST) 19 13-40 U/L Alanine Aminotransferase (ALT) 16 7-40 U/L Alkaline Phosphatase 131 H 46-116 U/L Total Protein 8.0 5.7-8.2 g/dL Albumin 5.0 H 3.2-4.8 g/dL Assessment/Plan Assessment/Plan Assessment History of sigmoid colon cancer scheduled Colectomy Left colon resection with anastomosis Alcohol use Ex-smoker History of left retinal detachment Plan Admit to med surge NPO Antiemetics Pain management IV fluids NG tube to low intermittent suction Home medications reconciled DVT prophylaxis-SCDs PUD prophylaxis-PPIs Discussed plan of care with patient and nurse PT eval General surgery following Counseled patient on cessation of alcohol use Counseled patient on continuing cessation of tobacco use Plan discussed with: Patient My Orders Orders - JUVENCIO JOSEPH Procedure Category Date Status Time Admit ADMIT 11/15/24 Transmitted 10:39 Allergies ROCCO 11/15/24 In Process 10:39 Code Status CODE 11/15/24 Transmitted 10:39 Sodium Chloride 0.9% PHA 11/15/24 Logged 10:45 Hydrocodone-Acet PHA 11/15/24 Logged 5/325mg Tab (Kismet 10:45 Ondansetron Hcl PHA 11/15/24 Logged (Zofran) 10:45 Complete Blood Count LAB 11/16/24 Verified 04:00 Comprehensive LAB 11/16/24 Verified Metabolic Panel 04:00 Npo (Nothing By DIET 11/15/24 Transmitted Mouth) Diet Lunch Acetaminophen Tablet PHA 11/15/24 Logged (Tylenol Tablet) 10:45 Morphine Sulfate PHA 11/15/24 Logged Injection 10:45 Complete Blood Count LAB 11/15/24 Logged 10:47 Basic Metabolic Panel LAB 11/15/24 Logged 10:47 (Nf) Atorvastatin PHA 11/16/24 Verified Calcium 10:00 Date of Service: November 15, 2024 Billing Provider: JUVENCIO JOSEPH Common Visit Codes: [id number] INP/OBS CARE (HIGH) JUVENCIO JOSEPH November 15, 2024 11:22
[2024-11-15 11:31] LABS: Basophils # (auto) 0 10 ^3/uL (0-0.2); Basophils % (auto) 0.3 % (0.0-2.0); Eosinophils # (auto) 0 10 ^3/uL (0-0.8); Hemoglobin 15.2 g/dL (13.5-17.5); Lymphocytes # (auto) 0.5 10 ^3/uL (0.4-5.4); Lymphocytes % (auto) 3.3 % (10.0-50.0); Mean Corpuscular Hemoglobin 30.9 pg (28.0-32.0); Mean Corpuscular Hgb Conc. 33.1 g/dL (32.0-36.0); Mean Corpuscular Volume 93.3 fL (80.0-100.0); Monocytes # (auto) 0.7 10 ^3/uL (0-1.3); Monocytes % (auto) 5.2 % (0.0-12.0); Neutrophils # (auto) 12.8 10 ^3/uL (1.6-8.6); Neutrophils % (auto) 91.2 % (37.0-80.0); Platelet Count (auto) 172 10^3/uL (140-450); Red Blood Cells 4.93 10^6/uL (4.5-5.90); Red Cell Distribution Width 13.7 % (11.8-14.3)
[2024-11-15 11:44] LABS: Anion Gap 12 (5-15); Carbon Dioxide 20 mmol/L (20-31); Chloride 104 mmol/L (98-107); Potassium 4.4 mmol/L (3.5-5.1); Sodium 136 mmol/L (136-145)
[2024-11-15 11:50] LABS: Blood Urea Nitrogen 19 mg/dL (9-23); Glucose 142 mg/dL (74-106)
[2024-11-15] MEDS: metroNIDAZOLE 500MG/100ML 100 ML IV SCH (13:27)
[2024-11-15] MEDS: ATORVASTATIN 20 MG TAB PO SCH (21:15)
[2024-11-16 05:00] VITALS: BP 110/68; PULSE 68; RESP 16; TEMP 98.2; O2SAT 93
[2024-11-16 07:13] LABS: Basophils # (auto) 0 10 ^3/uL (0-0.2); Basophils % (auto) 0.2 % (0.0-2.0); Eosinophils # (auto) 0 10 ^3/uL (0-0.8); Hematocrit 43.8 % (41.0-53.0); Hemoglobin 14.9 g/dL (13.5-17.5); Lymphocytes # (auto) 0.9 10 ^3/uL (0.4-5.4); Lymphocytes % (auto) 7.1 % (10.0-50.0); Mean Corpuscular Hemoglobin 31.6 pg (28.0-32.0); Mean Corpuscular Hgb Conc. 34.1 g/dL (32.0-36.0); Mean Corpuscular Volume 92.5 fL (80.0-100.0); Monocytes # (auto) 1.5 10 ^3/uL (0-1.3); Neutrophils # (auto) 10.8 10 ^3/uL (1.6-8.6); Neutrophils % (auto) 81.7 % (37.0-80.0); Platelet Count (auto) 176 10^3/uL (140-450); Red Blood Cells 4.73 10^6/uL (4.5-5.90); Red Cell Distribution Width 13.7 % (11.8-14.3); White Blood Cell 13.3 10^3/uL (4.4-10.8)
[2024-11-16 07:28] LABS: Alanine Aminotransferase 14 U/L (7-40); Albumin 4.3 g/dL (3.2-4.8); Alkaline Phosphatase 104 U/L (46-116); Anion Gap 13 (5-15); Aspartate Aminotransferase 22 U/L (13-40); BUN/Creatinine Ratio 16.7 (10.0-20.0); Blood Urea Nitrogen 15 mg/dL (9-23); Calcium 9.5 mg/dL (8.7-10.4); Carbon Dioxide 22 mmol/L (20-31); Chloride 101 mmol/L (98-107); Potassium 4.3 mmol/L (3.5-5.1); Total Protein 7.3 g/dL (5.7-8.2)
[2024-11-16 07:29] LABS: Bilirubin, Total 0.9 mg/dL (0.2-1.0)
[2024-11-16 07:33] LABS: Glucose 113 mg/dL (74-106); Sodium 136 mmol/L (136-145)
[2024-11-16 09:00] VITALS: BP 106/71; PULSE 64; RESP 18; TEMP 98.3; O2SAT 92
[2024-11-16] MEDS: PANTOPRAZOLE 40 MG/10 ML VIAL INJ IV SCH (09:09)
--- NOTE | 2024-11-16 09:25 | DVHPN2 ---
Progress Note Date Seen: November 16, 2024 Medical Necessity Reason Pt with a Central, PICC or Fol: No Objective vital signs Vital Sign Date Time Temp Pulse Resp B/P (MAP) Pulse Ox O2 Delivery O2 Flow Rate FiO2 11/16/24 05:00 98.2 68 16 110/68 (82) 93 98.2 11/15/24 14:00 Nasal Cannula 2.0 11/15/24 14:00 97 Total Intake and Output 11/15/24 11/15/24 11/16/24 15:00 23:00 07:00 Intake Total 50 ml 1100 ml 200 ml Output Total 40 ml 150 ml 1100 ml Balance 10 ml 950 ml -900 ml medications Current Medications Medications Dose Ordered Sig/Gayle Route Start Time Stop Time Status Last Admin Dose Admin Potassium Chloride/Dextrose/ Sod Cl 1,000 ml @ 120 mls/hr Q8H20M IV 11/15/24 09:15 11/15/24 17:47 120 MLS/HR Ceftriaxone Sodium/Dextrose 50 ml @ 50 mls/hr DAILY IV 11/15/24 10:00 11/15/24 10:38 50 MLS/HR Metronidazole 100 ml @ 100 mls/hr Q8HR IV 11/15/24 14:00 11/16/24 06:22 100 MLS/HR Morphine Sulfate 2 mg Q3HPRN PRN IV 11/15/24 09:15 Hold Acetaminophen/ Hydrocodone Bitart 1 tab Q4HP PRN PO 11/15/24 10:45 Ondansetron HCl 4 mg Q4HP PRN IV 11/15/24 10:45 Acetaminophen 650 mg Q6HP PRN PO 11/15/24 10:45 Morphine Sulfate 2 mg Q4HPRN PRN IV 11/15/24 10:45 Patient Own Medication 1 tab DAILY PO 11/16/24 10:00 UNV Pantoprazole Sodium 40 mg DAILY IV 11/16/24 10:00 Atorvastatin Calcium 10 mg HS PO 11/15/24 22:00 laboratory and microbiology Laboratory Tests 11/16/24 04:27 Test 11/16/24 04:27 Range/Units Serum Glucose 113 H 74-106 mg/dL Problem List/Assessment/Plan Problem List/Assessment/Plan 11/16/24 feels well, not been out of bed yet, abdomen appropriately tenderm drwessing dry, drainage per ISRAEL is serous, start ambulation Plan discussed with: Patient STACEY BACH MD November 16, 2024 09:25
[2024-11-16] MEDS ORDERED: PATIENTS OWN MEDICATION (Atorvastatin Calcium 1 TAB) PO SCH (10:00)
--- NOTE | 2024-11-16 11:00 | DVHPN2 ---
Reviewed: Care Plan, H&P, Labs, Medications, Previous Orders, Radiology Changes from previous H/P or p: No Changes General: Per HPI Objective Vitals Vital Signs Date Time Temp Pulse Resp B/P (MAP) Pulse Ox O2 Delivery O2 Flow Rate FiO2 11/16/24 09:00 98.3 64 18 106/71 (83) 92 98.3 11/15/24 14:00 Nasal Cannula 2.0 11/15/24 14:00 97 Intake/Output Intake and Output 11/16/24 07:00 Intake Total 1350 ml Output Total 1290 ml Balance 60 ml Intake Oral 450 ml IV Total 900 ml Output Urine Total 1250 ml Drainage Total 40 ml Medications Current Medications Medications Dose Ordered Sig/Gayle Route Start Time Stop Time Status Last Admin Dose Admin Potassium Chloride/Dextrose/ Sod Cl 1,000 ml @ 120 mls/hr Q8H20M IV 11/15/24 09:15 11/15/24 17:47 120 MLS/HR Ceftriaxone Sodium/Dextrose 50 ml @ 50 mls/hr DAILY IV 11/15/24 10:00 11/16/24 09:09 50 MLS/HR Metronidazole 100 ml @ 100 mls/hr Q8HR IV 11/15/24 14:00 11/16/24 06:22 100 MLS/HR Morphine Sulfate 2 mg Q3HPRN PRN IV 11/15/24 09:15 Hold Acetaminophen/ Hydrocodone Bitart 1 tab Q4HP PRN PO 11/15/24 10:45 Ondansetron HCl 4 mg Q4HP PRN IV 11/15/24 10:45 Acetaminophen 650 mg Q6HP PRN PO 11/15/24 10:45 Morphine Sulfate 2 mg Q4HPRN PRN IV 11/15/24 10:45 Patient Own Medication 1 tab DAILY PO 11/16/24 10:00 UNV Pantoprazole Sodium 40 mg DAILY IV 11/16/24 10:00 11/16/24 09:09 40 MG Atorvastatin Calcium 10 mg HS PO 11/15/24 22:00 Laboratory Results Laboratory Tests 11/16/24 04:27 Chemistry Test 11/15/24 11:22 11/16/24 04:27 Calcium Level 9.0 mg/dL (8.7-10.4) 9.5 mg/dL (8.7-10.4) Albumin 4.3 g/dL (3.2-4.8) Total Protein 7.3 g/dL (5.7-8.2) LFT Test 11/16/24 04:27 Alanine Aminotransferase (ALT) 14 U/L (7-40) Alkaline Phosphatase 104 U/L (46-116) Aspartate Amino Transferase (AST) 22 U/L (13-40) Total Bilirubin 0.9 mg/dL (0.2-1.0) Urinalysis Test 11/14/24 10:10 Urine Color Yellow (Yellow) Urine Clarity Clear (Clear) Urine pH 5.0 (5.0-9.0) Urine Specific [place] 1.023 (1.001-1.035) Urine Protein Negative (Negative) Urine Ketones 2+ (Negative) H Urine Blood Trace /uL (Negative) H Urine Nitrite Negative (Negative) Urine Bilirubin Negative (Negative) Urine Urobilinogen Normal mg/dL (Negative) Urine Leukocyte Esterase Negative /uL (Negative) Urine RBC <1 /hpf (0 - 3) Urine Microscopic WBC 1 /HPF (0-3) Urine Squamous Epithelial Cells Few /hpf (<5) Urine Bacteria None seen /hpf (None Seen) Urine Mucus Few (None Seen) Urine Glucose Normal mg/dL (Normal) Labs and/or images reviewed: Labs reviewed by me, Image(s) reviewed by me Assessment/Plan Assessment/Plan Conner Tompkins is 69YO M who has a pmHx of sigmoid colon CA and left retinal detachment who presents to the hospital for colectomy. s/p left colon resection with anastomosis with general surgery today. Upon examination patient currently has 1 ISRAEL drain with sanguinous output also with abdominal binder and vertical incision. Patient reports that he does not use any DME he has with ambulation at home. He states that he is retired. He also states that he drinks occasionally, quit smoking, and does not use illicit drugs. Patient denies any chest pain, shortness of breath, fever, chills, lightheadedness, weakness, dizziness, nausea, vomiting, or diarrhea. History of sigmoid colon cancer scheduled Colectomy Left colon resection with anastomosis Alcohol use Ex-smoker History of left retinal detachment 11/16/2024: status post Exploratory laparotomy. Left hemicolectomy. Descending colon rectostomy. f/u with gen surg recommendations Plan discussed with: Patient Date of Service: November 16, 2024 Billing Provider: ESTEBAN MOSES DO Common Visit Codes: [id number] INP/OBS CARE(HIGH) ESTEBAN MOSES DO November 16, 2024 11:00
[2024-11-16 12:46] VITALS: BP 109/72; PULSE 68; RESP 18; TEMP 98.1; O2SAT 94
[2024-11-16 16:36] VITALS: BP 125/62; PULSE 69; RESP 17; TEMP 98.4; O2SAT 95
[2024-11-16 21:00] VITALS: BP 124/75; PULSE 64; RESP 17; TEMP 98.4; O2SAT 94
[2024-11-17 01:00] VITALS: BP 118/77; PULSE 63; RESP 18; TEMP 98.4; O2SAT 93
[2024-11-17 05:00] VITALS: BP 124/80; PULSE 69; RESP 18; TEMP 98.1; O2SAT 93
--- NOTE | 2024-11-17 07:22 | DVHPN2 ---
Subjective Date Seen: November 17, 2024 Post op day Post op day: 2 Patient reports: No new complaints Nursing reports: No new complaints General: Normal HNT: Normal Cardiovascular: Normal Respiratory: Normal Gastrointestinal: Normal Genitourinary: Normal Musculoskeletal: Normal Neurological: Normal Objective Vitals Vital Sign Date Time Temp Pulse Resp B/P (MAP) Pulse Ox O2 Delivery O2 Flow Rate FiO2 11/17/24 05:00 98.1 69 18 124/80 (95) 93 98.1 11/16/24 20:00 Nasal Cannula* 2 28 Total Intake and Output 11/16/24 11/16/24 11/17/24 15:00 23:00 07:00 Intake Total 150 ml 100 ml Output Total 800 ml 600 ml Balance 150 ml -700 ml -600 ml Medications Current Medications Medications Dose Ordered Sig/Gayle Route Start Time Stop Time Status Last Admin Dose Admin Potassium Chloride/Dextrose/ Sod Cl 1,000 ml @ 120 mls/hr Q8H20M IV 11/15/24 09:15 11/16/24 18:30 120 MLS/HR Ceftriaxone Sodium/Dextrose 50 ml @ 50 mls/hr DAILY IV 11/15/24 10:00 11/16/24 09:09 50 MLS/HR Metronidazole 100 ml @ 100 mls/hr Q8HR IV 11/15/24 14:00 11/17/24 05:53 100 MLS/HR Morphine Sulfate 2 mg Q3HPRN PRN IV 11/15/24 09:15 Hold Acetaminophen/ Hydrocodone Bitart 1 tab Q4HP PRN PO 11/15/24 10:45 Ondansetron HCl 4 mg Q4HP PRN IV 11/15/24 10:45 Acetaminophen 650 mg Q6HP PRN PO 11/15/24 10:45 Morphine Sulfate 2 mg Q4HPRN PRN IV 11/15/24 10:45 Patient Own Medication 1 tab DAILY PO 11/16/24 10:00 UNV Pantoprazole Sodium 40 mg DAILY IV 11/16/24 10:00 11/16/24 09:09 40 MG Atorvastatin Calcium 10 mg HS PO 11/15/24 22:00 General: Normal, Well developed Head/Eyes: Normal ENT: Normal Neck: Normal Lungs: Normal Cardiovascular: Normal Abdominal: Normal, Soft Skin: Other (ABDOMINAL WOUND, ISRAEL DRAIN ) Labs and Microbiology Laboratory Tests 11/16/24 04:27 Test 11/16/24 04:27 Range/Units Serum Glucose 113 H 74-106 mg/dL Ass/Plan Labs and/or images reviewed: Labs reviewed by me, Image(s) reviewed by me Problem List 11/16/24 feels well, not been out of bed yet, abdomen appropriately tenderm drwessing dry, drainage per ISRAEL is serous, start ambulation Assessment/Plan 11/17/24 - s/p colon resection no new complaints feeling well abdomen soft non distended, non tender denies nausea or vomiting Plan: patient to ambulate continue current treatment Prognosis: Good Plan discussed with Dr. Sousa , patient Visit Coding Surgery Date of Service if different f: November 17, 2024 Billing Provider: STACEY SOUSA MD Surgery Visit Codes: [id number] INP/OBS CARE(HIGH) ADRIANA EWING BIOMETRICS CONSULTANT November 17, 2024 07:22
[2024-11-17 13:30] VITALS: BP 127/77; PULSE 83; RESP 18; TEMP 98.3; O2SAT 90
[2024-11-17 17:00] VITALS: BP 122/79; PULSE 71; RESP 18; TEMP 99.2; O2SAT 93
[2024-11-17 20:00] VITALS: PULSE 68; RESP 18; O2SAT 95
[2024-11-17 21:00] VITALS: BP 126/81; PULSE 68; RESP 18; TEMP 98.3; O2SAT 95
[2024-11-18] VITALS (8 sets, daily range): BP systolic 118–137; BP diastolic 67–99; PULSE 61–104; RESP 17–20; TEMP 97.7–98.4; O2SAT 92–99
--- NOTE | 2024-11-18 10:27 | DVHPN2 ---
Progress Note Date Seen: November 18, 2024 Medical Necessity Reason Pt with a Central, PICC or Fol: No Objective vital signs Vital Sign Date Time Temp Pulse Resp B/P (MAP) Pulse Ox O2 Delivery O2 Flow Rate FiO2 11/18/24 09:00 97.7 71 17 122/67 (85) 99 97.7 11/17/24 20:00 Room Air* 0 21 Total Intake and Output 11/17/24 11/17/24 11/18/24 15:00 23:00 07:00 Intake Total 350 ml 1105 ml Output Total 1500 ml Balance -1150 ml 1105 ml medications Current Medications Medications Dose Ordered Sig/Gayle Route Start Time Stop Time Status Last Admin Dose Admin Potassium Chloride/Dextrose/ Sod Cl 1,000 ml @ 120 mls/hr Q8H20M IV 11/15/24 09:15 11/18/24 01:46 120 MLS/HR Ceftriaxone Sodium/Dextrose 50 ml @ 50 mls/hr DAILY IV 11/15/24 10:00 11/17/24 09:00 50 MLS/HR Metronidazole 100 ml @ 100 mls/hr Q8HR IV 11/15/24 14:00 11/18/24 05:37 100 MLS/HR Morphine Sulfate 2 mg Q3HPRN PRN IV 11/15/24 09:15 Hold Acetaminophen/ Hydrocodone Bitart 1 tab Q4HP PRN PO 11/15/24 10:45 Ondansetron HCl 4 mg Q4HP PRN IV 11/15/24 10:45 Acetaminophen 650 mg Q6HP PRN PO 11/15/24 10:45 Morphine Sulfate 2 mg Q4HPRN PRN IV 11/15/24 10:45 Patient Own Medication 1 tab DAILY PO 11/16/24 10:00 UNV Pantoprazole Sodium 40 mg DAILY IV 11/16/24 10:00 11/17/24 08:03 40 MG Atorvastatin Calcium 10 mg HS PO 11/15/24 22:00 laboratory and microbiology Laboratory Tests 11/16/24 04:27 Test 11/16/24 04:27 Range/Units Serum Glucose 113 H 74-106 mg/dL Problem List/Assessment/Plan Problem List/Assessment/Plan 11/16/24 feels well, not been out of bed yet, abdomen appropriately tenderm drwessing dry, drainage per ISRAEL is serous, start ambulation 11/18/24 noflatus but is hungry, abdomen appropriately tender, labs ok,wounds ok,well approximated without infection. has been ambulating. Plan discussed with: Patient STACEY BACH MD November 18, 2024 10:27
--- NOTE | 2024-11-18 14:23 | DVHPN2 ---
Subjective Seen and examined at bedside, NGT in place. Ambulating, will give Ice Chips. ISRAEL drain still in place, no Flatus. Reviewed: Care Plan, H&P, Labs, Medications, Previous Orders, Radiology Changes from previous H/P or p: No Changes General: Per HPI Objective Vitals Vital Signs Date Time Temp Pulse Resp B/P (MAP) Pulse Ox O2 Delivery O2 Flow Rate FiO2 11/18/24 09:00 97.7 71 17 122/67 (85) 99 97.7 11/17/24 20:00 Room Air* 0 21 Intake/Output Intake and Output 11/18/24 07:00 Intake Total 1455 ml Output Total 1500 ml Balance -45 ml Intake Oral 25 ml IV Total 1430 ml Output Urine Total 1500 ml # Voids 4 Exam Gen: in bed NAD Cvs: N S1/S2, RRR Resp: Diminished Abd: ISRAEL drain in place Decision Science Analyst: AAOx 4 Medications Current Medications Medications Dose Ordered Sig/Gayle Route Start Time Stop Time Status Last Admin Dose Admin Potassium Chloride/Dextrose/ Sod Cl 1,000 ml @ 120 mls/hr Q8H20M IV 11/15/24 09:15 11/18/24 11:14 120 MLS/HR Ceftriaxone Sodium/Dextrose 50 ml @ 50 mls/hr DAILY IV 11/15/24 10:00 11/18/24 11:14 50 MLS/HR Metronidazole 100 ml @ 100 mls/hr Q8HR IV 11/15/24 14:00 11/18/24 05:37 100 MLS/HR Morphine Sulfate 2 mg Q3HPRN PRN IV 11/15/24 09:15 Hold Acetaminophen/ Hydrocodone Bitart 1 tab Q4HP PRN PO 11/15/24 10:45 Ondansetron HCl 4 mg Q4HP PRN IV 11/15/24 10:45 Acetaminophen 650 mg Q6HP PRN PO 11/15/24 10:45 Morphine Sulfate 2 mg Q4HPRN PRN IV 11/15/24 10:45 Patient Own Medication 1 tab DAILY PO 11/16/24 10:00 UNV Pantoprazole Sodium 40 mg DAILY IV 11/16/24 10:00 11/18/24 11:14 40 MG Atorvastatin Calcium 10 mg HS PO 11/15/24 22:00 Laboratory Results Laboratory Tests 11/16/24 04:27 Urinalysis Test 11/14/24 10:10 Urine Color Yellow (Yellow) Urine Clarity Clear (Clear) Urine pH 5.0 (5.0-9.0) Urine Specific [place] 1.023 (1.001-1.035) Urine Protein Negative (Negative) Urine Ketones 2+ (Negative) H Urine Blood Trace /uL (Negative) H Urine Nitrite Negative (Negative) Urine Bilirubin Negative (Negative) Urine Urobilinogen Normal mg/dL (Negative) Urine Leukocyte Esterase Negative /uL (Negative) Urine RBC <1 /hpf (0 - 3) Urine Microscopic WBC 1 /HPF (0-3) Urine Squamous Epithelial Cells Few /hpf (<5) Urine Bacteria None seen /hpf (None Seen) Urine Mucus Few (None Seen) Urine Glucose Normal mg/dL (Normal) Assessment/Plan Assessment/Plan Sigmoid colon cancer scheduled Colectomy - NGT in place. Ice Chips Left colon resection with anastomosis Alcohol use Ex-smoker History of left retinal detachment DVT Prop- SCDs while in bed Goals of care FULL CODE Plan discussed with: Patient My Orders Orders - MJ SPEARS MD Procedure Category Date Status Time Basic Metabolic Panel LAB 11/19/24 Verified 04:00 Comprehensive LAB 11/19/24 Verified Metabolic Panel 04:00 Magnesium LAB 11/19/24 Verified 04:00 Date of Service: November 18, 2024 Billing Provider: MJ SPEARS MD Common Visit Codes: [id number] INP/OBS CARE(HIGH) Secondary Visit Codes: [id number] CARE PLAN 30 MINUTES MJ SPEARS MD November 18, 2024 14:23
--- NOTE | 2024-11-18 16:36 | DVHPN2 ---
Reviewed: Care Plan, H&P, Labs, Medications, Previous Orders, Radiology Changes from previous H/P or p: No Changes General: Per HPI Objective Vitals Vital Signs Date Time Temp Pulse Resp B/P (MAP) Pulse Ox O2 Delivery O2 Flow Rate FiO2 11/18/24 13:00 98.1 82 18 137/99 (112) 96 98.1 11/18/24 08:00 Room Air* 0 21 Intake/Output Intake and Output 11/18/24 07:00 Intake Total 1455 ml Output Total 1500 ml Balance -45 ml Intake Oral 25 ml IV Total 1430 ml Output Urine Total 1500 ml # Voids 4 Medications Current Medications Medications Dose Ordered Sig/Gayle Route Start Time Stop Time Status Last Admin Dose Admin Morphine Sulfate 2 mg Q3HPRN PRN IV 11/15/24 09:15 Hold Acetaminophen/ Hydrocodone Bitart 1 tab Q4HP PRN PO 11/15/24 10:45 Ondansetron HCl 4 mg Q4HP PRN IV 11/15/24 10:45 Acetaminophen 650 mg Q6HP PRN PO 11/15/24 10:45 Morphine Sulfate 2 mg Q4HPRN PRN IV 11/15/24 10:45 Patient Own Medication 1 tab DAILY PO 11/16/24 10:00 UNV Pantoprazole Sodium 40 mg DAILY IV 11/16/24 10:00 11/18/24 11:14 40 MG Laboratory Results Laboratory Tests 11/16/24 04:27 Urinalysis Test 11/14/24 10:10 Urine Color Yellow (Yellow) Urine Clarity Clear (Clear) Urine pH 5.0 (5.0-9.0) Urine Specific [place] 1.023 (1.001-1.035) Urine Protein Negative (Negative) Urine Ketones 2+ (Negative) H Urine Blood Trace /uL (Negative) H Urine Nitrite Negative (Negative) Urine Bilirubin Negative (Negative) Urine Urobilinogen Normal mg/dL (Negative) Urine Leukocyte Esterase Negative /uL (Negative) Urine RBC <1 /hpf (0 - 3) Urine Microscopic WBC 1 /HPF (0-3) Urine Squamous Epithelial Cells Few /hpf (<5) Urine Bacteria None seen /hpf (None Seen) Urine Mucus Few (None Seen) Urine Glucose Normal mg/dL (Normal) Assessment/Plan Assessment/Plan Conner Tompkins is 69YO M who has a pmHx of sigmoid colon CA and left retinal detachment who presents to the hospital for colectomy. s/p left colon resection with anastomosis with general surgery today. Upon examination patient currently has 1 ISRAEL drain with sanguinous output also with abdominal binder and vertical incision. Patient reports that he does not use any DME he has with ambulation at home. He states that he is retired. He also states that he drinks occasionally, quit smoking, and does not use illicit drugs. Patient denies any chest pain, shortness of breath, fever, chills, lightheadedness, weakness, dizziness, nausea, vomiting, or diarrhea. History of sigmoid colon cancer scheduled Colectomy Left colon resection with anastomosis Alcohol use Ex-smoker History of left retinal detachment 11/16/2024: status post Exploratory laparotomy. Left hemicolectomy. Descending colon rectostomy. f/u with gen surg recommendations 11/17/2024: advance diet per Gen Surg still has NG tube Plan discussed with: Patient Date of Service: November 17, 2024 Billing Provider: ESTEBAN MOSES DO Common Visit Codes: [id number] INP/OBS CARE(HIGH) ESTEBAN MOSES DO November 18, 2024 16:36
[2024-11-19 01:00] VITALS: BP 110/79; PULSE 95; RESP 19; TEMP 98; O2SAT 93
[2024-11-19 05:00] VITALS: BP 125/83; PULSE 104; RESP 20; TEMP 98.1; O2SAT 92
[2024-11-19 06:55] LABS: Alanine Aminotransferase 15 U/L (7-40); Albumin 4.4 g/dL (3.2-4.8); Alkaline Phosphatase 87 U/L (46-116); Anion Gap 12 (5-15); Aspartate Aminotransferase 17 U/L (13-40); BUN/Creatinine Ratio 16.9 (10.0-20.0); Blood Urea Nitrogen 15 mg/dL (9-23); Calcium 9.7 mg/dL (8.7-10.4); Carbon Dioxide 24 mmol/L (20-31); Chloride 103 mmol/L (98-107); Glucose 97 mg/dL (74-106); Potassium 3.8 mmol/L (3.5-5.1); Sodium 139 mmol/L (136-145); Total Protein 7.4 g/dL (5.7-8.2)
[2024-11-19 06:56] LABS: Bilirubin, Total 0.9 mg/dL (0.2-1.0)
[2024-11-19 09:00] VITALS: BP 115/75; PULSE 94; RESP 17; TEMP 97.8; O2SAT 93
--- NOTE | 2024-11-19 11:15 | DVHPN2 ---
Subjective The patient seen and examined at bedside. Complains of tired and pain. Reviewed: Care Plan, H&P, Labs, Medications, Previous Orders, Radiology Changes from previous H/P or p: No Changes General: Per HPI Objective Vitals Vital Signs Date Time Temp Pulse Resp B/P (MAP) Pulse Ox O2 Delivery O2 Flow Rate FiO2 11/19/24 05:00 98.1 104 20 125/83 (97) 92 98.1 11/18/24 20:00 Room Air* 0 21 Intake/Output Intake and Output 11/19/24 07:00 Intake Total 170 ml Output Total 20 ml Balance 150 ml Intake Oral 120 ml IV Total 50 ml Gastric Drainage Total 20 ml # Voids 2 General Appearance: Alert, Oriented X3, Cooperative HEENT: Atraumatic, PERRLA, EOMI, Mucous membr. moist/pink Neck: Supple Lungs: Clear to auscultation, Normal air movement Cardiovascular: Regular rate, Normal S1, Normal S2, No murmurs, Gallops, Rubs Abdomen: Normal bowel sounds, Soft, No tenderness, No hepatospenomegaly Neuro: Cranial nerves 3-12 NL Psych/Mental Status: Mental status NL Medications Current Medications Medications Dose Ordered Sig/Gayle Route Start Time Stop Time Status Last Admin Dose Admin Morphine Sulfate 2 mg Q3HPRN PRN IV 11/15/24 09:15 Hold Acetaminophen/ Hydrocodone Bitart 1 tab Q4HP PRN PO 11/15/24 10:45 Ondansetron HCl 4 mg Q4HP PRN IV 11/15/24 10:45 Acetaminophen 650 mg Q6HP PRN PO 11/15/24 10:45 Morphine Sulfate 2 mg Q4HPRN PRN IV 11/15/24 10:45 Patient Own Medication 1 tab DAILY PO 11/16/24 10:00 UNV Pantoprazole Sodium 40 mg DAILY IV 11/16/24 10:00 11/19/24 10:04 40 MG Laboratory Results Laboratory Tests 11/16/24 04:27 11/19/24 05:27 Chemistry Test 11/19/24 05:27 Albumin 4.4 g/dL (3.2-4.8) Calcium Level 9.7 mg/dL (8.7-10.4) Magnesium Level 2.0 mg/dL (1.6-2.6) Total Protein 7.4 g/dL (5.7-8.2) LFT Test 11/19/24 05:27 Alanine Aminotransferase (ALT) 15 U/L (7-40) Alkaline Phosphatase 87 U/L (46-116) Aspartate Amino Transferase (AST) 17 U/L (13-40) Total Bilirubin 0.9 mg/dL (0.2-1.0) Urinalysis Test 11/14/24 10:10 Urine Color Yellow (Yellow) Urine Clarity Clear (Clear) Urine pH 5.0 (5.0-9.0) Urine Specific [place] 1.023 (1.001-1.035) Urine Protein Negative (Negative) Urine Ketones 2+ (Negative) H Urine Blood Trace /uL (Negative) H Urine Nitrite Negative (Negative) Urine Bilirubin Negative (Negative) Urine Urobilinogen Normal mg/dL (Negative) Urine Leukocyte Esterase Negative /uL (Negative) Urine RBC <1 /hpf (0 - 3) Urine Microscopic WBC 1 /HPF (0-3) Urine Squamous Epithelial Cells Few /hpf (<5) Urine Bacteria None seen /hpf (None Seen) Urine Mucus Few (None Seen) Urine Glucose Normal mg/dL (Normal) Labs and/or images reviewed: Labs reviewed by me Assessment/Plan Assessment/Plan Conner Tompkins is 69YO M who has a pmHx of sigmoid colon CA and left retinal detachment who presents to the hospital for colectomy. s/p left colon resection with anastomosis with general surgery today. Upon examination patient currently has 1 ISRAEL drain with sanguinous output also with abdominal binder and vertical incision. Patient reports that he does not use any DME he has with ambulation at home. He states that he is retired. He also states that he drinks occasionally, quit smoking, and does not use illicit drugs. Patient denies any chest pain, shortness of breath, fever, chills, lightheadedness, weakness, dizziness, nausea, vomiting, or diarrhea. History of sigmoid colon cancer scheduled Colectomy Left colon resection with anastomosis Alcohol use Ex-smoker History of left retinal detachment 11/16/2024: status post Exploratory laparotomy. Left hemicolectomy. Descending colon rectostomy. f/u with gen surg recommendations 11/17/2024: advance diet per Gen Surg still has NG tube 11/19/2024: Continue advance diet per General surgeon recommendation NGT will be discontinue today. Encourage patient to be out of bed and ambulate. This medical document was created using an electronic medical record system with M*M flurency direct computerized dictation system. Although this document has been carefully reviewed, there may still be some phonetic and typographical errors. These areas are purely typographical due to imperfections of the software programs, and do not reflect any compromise in the patient's medical care. Plan discussed with: Patient Date of Service: November 19, 2024 Billing Provider: JOVANA BARRIOS MD Common Visit Codes: [id number] INP/OBS CARE(HIGH) JOVANA BARRIOS MD November 19, 2024 11:15
[2024-11-19 13:00] VITALS: BP 121/87; PULSE 99; RESP 19; TEMP 98; O2SAT 92
--- NOTE | 2024-11-19 13:08 | DVHPN2 ---
Progress Note Date Seen: November 19, 2024 Medical Necessity Reason Pt with a Central, PICC or Fol: No Objective vital signs Vital Sign Date Time Temp Pulse Resp B/P (MAP) Pulse Ox O2 Delivery O2 Flow Rate FiO2 11/19/24 09:00 97.8 94 17 115/75 (88) 93 97.8 11/18/24 20:00 Room Air* 0 21 Total Intake and Output 11/18/24 11/18/24 11/19/24 14:59 22:59 06:59 Intake Total 50 ml 120 ml 0 ml Output Total 20 ml Balance 30 ml 120 ml 0 ml medications Current Medications Medications Dose Ordered Sig/Gayle Route Start Time Stop Time Status Last Admin Dose Admin Morphine Sulfate 2 mg Q3HPRN PRN IV 11/15/24 09:15 Hold Acetaminophen/ Hydrocodone Bitart 1 tab Q4HP PRN PO 11/15/24 10:45 Ondansetron HCl 4 mg Q4HP PRN IV 11/15/24 10:45 Acetaminophen 650 mg Q6HP PRN PO 11/15/24 10:45 Morphine Sulfate 2 mg Q4HPRN PRN IV 11/15/24 10:45 Patient Own Medication 1 tab DAILY PO 11/16/24 10:00 UNV Pantoprazole Sodium 40 mg DAILY IV 11/16/24 10:00 11/19/24 10:04 40 MG laboratory and microbiology Laboratory Tests 11/19/24 05:27 11/16/24 04:27 Test 11/19/24 05:27 Range/Units Serum Glucose 97 74-106 mg/dL Problem List/Assessment/Plan Problem List/Assessment/Plan 11/16/24 feels well, not been out of bed yet, abdomen appropriately tenderm drwessing dry, drainage per ISRAEL is serous, start ambulation 11/18/24 noflatus but is hungry, abdomen appropriately tender, labs ok,wounds ok,well approximated without infection. has been ambulating. 11/19/24 passed flatus, is hungry, abdomen soft, non distended appropriately tender will dc ngt and sllow po liquids Plan discussed with: Patient Dietary Evaluation Review Comments: 1. Offer ensure clear when pt's diet is limited to clear liquid. 2. Advance to diet as tolterated when meically feasible. Expected Outcomes/Goals: maintain wt STACEY BACH MD November 19, 2024 13:08
[2024-11-19 17:00] VITALS: BP 111/78; PULSE 92; RESP 18; TEMP 98.5; O2SAT 93
[2024-11-19 21:00] VITALS: BP 111/78; PULSE 97; RESP 18; TEMP 98.3; O2SAT 95
[2024-11-20] VITALS (7 sets, daily range): BP systolic 105–130; BP diastolic 59–84; PULSE 64–93; RESP 15–18; TEMP 97.8–98.5; O2SAT 92–94
--- NOTE | 2024-11-20 09:48 | DVHPN2 ---
Progress Note Date Seen: November 20, 2024 Medical Necessity Reason Pt with a Central, PICC or Fol: No Objective vital signs Vital Sign Date Time Temp Pulse Resp B/P (MAP) Pulse Ox O2 Delivery O2 Flow Rate FiO2 11/20/24 05:00 98.2 64 18 105/77 (86) 94 98.2 11/19/24 20:00 Room Air* 0 21 Total Intake and Output 11/19/24 11/19/24 11/20/24 15:00 23:00 07:00 Intake Total 720 ml Output Total 20 ml Balance -20 ml 720 ml medications Current Medications Medications Dose Ordered Sig/Gayle Route Start Time Stop Time Status Last Admin Dose Admin Morphine Sulfate 2 mg Q3HPRN PRN IV 11/15/24 09:15 Hold Acetaminophen/ Hydrocodone Bitart 1 tab Q4HP PRN PO 11/15/24 10:45 Ondansetron HCl 4 mg Q4HP PRN IV 11/15/24 10:45 Acetaminophen 650 mg Q6HP PRN PO 11/15/24 10:45 Morphine Sulfate 2 mg Q4HPRN PRN IV 11/15/24 10:45 Patient Own Medication 1 tab DAILY PO 11/16/24 10:00 UNV Pantoprazole Sodium 40 mg DAILY IV 11/16/24 10:00 11/19/24 10:04 40 MG laboratory and microbiology Laboratory Tests 11/19/24 05:27 11/16/24 04:27 Test 11/19/24 05:27 Range/Units Serum Glucose 97 74-106 mg/dL Problem List/Assessment/Plan Problem List/Assessment/Plan 11/16/24 feels well, not been out of bed yet, abdomen appropriately tenderm drwessing dry, drainage per ISRAEL is serous, start ambulation 11/18/24 noflatus but is hungry, abdomen appropriately tender, labs ok,wounds ok,well approximated without infection. has been ambulating. 11/19/24 passed flatus, is hungry, abdomen soft, non distended appropriately tender will dc ngt and sllow po liquids 11/20/24 normal bowel and [id number] function, wound clean and well approximated, abdomen non distended, non tender, will advance dieat he should be able to go home tomorrow or day after Plan discussed with: Patient Dietary Evaluation Review Comments: 1. Offer ensure clear when pt's diet is limited to clear liquid. 2. Advance to diet as tolterated when meically feasible. Expected Outcomes/Goals: maintain wt STACEY BACH MD November 20, 2024 09:48
--- NOTE | 2024-11-20 22:38 | DVHPN2 ---
Reviewed: Care Plan, H&P, Labs, Medications, Previous Orders, Radiology Changes from previous H/P or p: No Changes General: Per HPI Objective Vitals Vital Signs Date Time Temp Pulse Resp B/P (MAP) Pulse Ox O2 Delivery O2 Flow Rate FiO2 11/20/24 17:00 98.3 82 16 119/84 (96) 94 98.3 11/20/24 08:00 Room Air* 0 21 Intake/Output Intake and Output 11/20/24 07:00 Intake Total 720 ml Output Total 20 ml Balance 700 ml Intake Oral 720 ml Drainage Total 20 ml # Voids 2 Medications Current Medications Medications Dose Ordered Sig/Gayle Route Start Time Stop Time Status Last Admin Dose Admin Morphine Sulfate 2 mg Q3HPRN PRN IV 11/15/24 09:15 Hold Acetaminophen/ Hydrocodone Bitart 1 tab Q4HP PRN PO 11/15/24 10:45 Ondansetron HCl 4 mg Q4HP PRN IV 11/15/24 10:45 Acetaminophen 650 mg Q6HP PRN PO 11/15/24 10:45 Morphine Sulfate 2 mg Q4HPRN PRN IV 11/15/24 10:45 Patient Own Medication 1 tab DAILY PO 11/16/24 10:00 UNV Pantoprazole Sodium 40 mg DAILY IV 11/16/24 10:00 11/20/24 09:57 40 MG Laboratory Results Laboratory Tests 11/16/24 04:27 11/19/24 05:27 Urinalysis Test 11/14/24 10:10 Urine Color Yellow (Yellow) Urine Clarity Clear (Clear) Urine pH 5.0 (5.0-9.0) Urine Specific [place] 1.023 (1.001-1.035) Urine Protein Negative (Negative) Urine Ketones 2+ (Negative) H Urine Blood Trace /uL (Negative) H Urine Nitrite Negative (Negative) Urine Bilirubin Negative (Negative) Urine Urobilinogen Normal mg/dL (Negative) Urine Leukocyte Esterase Negative /uL (Negative) Urine RBC <1 /hpf (0 - 3) Urine Microscopic WBC 1 /HPF (0-3) Urine Squamous Epithelial Cells Few /hpf (<5) Urine Bacteria None seen /hpf (None Seen) Urine Mucus Few (None Seen) Urine Glucose Normal mg/dL (Normal) Assessment/Plan Assessment/Plan Conner Tompkins is 69YO M who has a pmHx of sigmoid colon CA and left retinal detachment who presents to the hospital for colectomy. s/p left colon resection with anastomosis with general surgery today. Upon examination patient currently has 1 ISRAEL drain with sanguinous output also with abdominal binder and vertical incision. Patient reports that he does not use any DME he has with ambulation at home. He states that he is retired. He also states that he drinks occasionally, quit smoking, and does not use illicit drugs. Patient denies any chest pain, shortness of breath, fever, chills, lightheadedness, weakness, dizziness, nausea, vomiting, or diarrhea. History of sigmoid colon cancer scheduled Colectomy Left colon resection with anastomosis Alcohol use Ex-smoker History of left retinal detachment 11/16/2024: status post Exploratory laparotomy. Left hemicolectomy. Descending colon rectostomy. f/u with gen surg recommendations 11/17/2024: advance diet per Gen Surg still has NG tube 11/19/2024: Continue advance diet per General surgeon recommendation NGT will be discontinue today. Encourage patient to be out of bed and ambulate. 11/20/2024: Continuing current management. PT to be out of bed and ambulate Discharge planning This medical document was created using an electronic medical record system with M*M flurency direct computerized dictation system. Although this document has been carefully reviewed, there may still be some phonetic and typographical errors. These areas are purely typographical due to imperfections of the software programs, and do not reflect any compromise in the patient's medical care. Plan discussed with: Patient Date of Service: November 20, 2024 Billing Provider: JOVANA BARRIOS MD Common Visit Codes: [id number] INP/OBS CARE(HIGH) JOVANA BARRIOS MD November 20, 2024 22:38
[2024-11-21] VITALS (7 sets, daily range): BP systolic 109–123; BP diastolic 72–84; PULSE 67–87; RESP 16–18; TEMP 97.7–98.3; O2SAT 93–97
--- NOTE | 2024-11-21 10:49 | DVHPN2 ---
Subjective The patient seen and examined at bedside. Complains of tired and pain. Reviewed: Care Plan, H&P, Labs, Medications, Previous Orders, Radiology Changes from previous H/P or p: No Changes General: Per HPI Objective Vitals Vital Signs Date Time Temp Pulse Resp B/P (MAP) Pulse Ox O2 Delivery O2 Flow Rate FiO2 11/21/24 09:00 98.0 79 16 112/81 (91) 95 98.0 11/21/24 08:00 Room Air* 0 21 Intake/Output Intake and Output 11/21/24 07:00 Intake Total 1115 ml Output Total 20 ml Balance 1095 ml Intake Oral 1115 ml Drainage Total 20 ml # Voids 5 # Bowel Movements 5 General Appearance: Alert, Oriented X3, Cooperative HEENT: Atraumatic, PERRLA, EOMI, Mucous membr. moist/pink Neck: Supple Lungs: Clear to auscultation, Normal air movement Cardiovascular: Regular rate, Normal S1, Normal S2, No murmurs, Gallops, Rubs Abdomen: Normal bowel sounds, Soft, No tenderness, No hepatospenomegaly Neuro: Cranial nerves 3-12 NL Psych/Mental Status: Mental status NL Medications Current Medications Medications Dose Ordered Sig/Gayle Route Start Time Stop Time Status Last Admin Dose Admin Morphine Sulfate 2 mg Q3HPRN PRN IV 11/15/24 09:15 Hold Acetaminophen/ Hydrocodone Bitart 1 tab Q4HP PRN PO 11/15/24 10:45 Ondansetron HCl 4 mg Q4HP PRN IV 11/15/24 10:45 Acetaminophen 650 mg Q6HP PRN PO 11/15/24 10:45 Morphine Sulfate 2 mg Q4HPRN PRN IV 11/15/24 10:45 Patient Own Medication 1 tab DAILY PO 11/16/24 10:00 UNV Pantoprazole Sodium 40 mg DAILY IV 11/16/24 10:00 11/21/24 09:16 40 MG Laboratory Results Laboratory Tests 11/16/24 04:27 11/19/24 05:27 Urinalysis Test 11/14/24 10:10 Urine Color Yellow (Yellow) Urine Clarity Clear (Clear) Urine pH 5.0 (5.0-9.0) Urine Specific [place] 1.023 (1.001-1.035) Urine Protein Negative (Negative) Urine Ketones 2+ (Negative) H Urine Blood Trace /uL (Negative) H Urine Nitrite Negative (Negative) Urine Bilirubin Negative (Negative) Urine Urobilinogen Normal mg/dL (Negative) Urine Leukocyte Esterase Negative /uL (Negative) Urine RBC <1 /hpf (0 - 3) Urine Microscopic WBC 1 /HPF (0-3) Urine Squamous Epithelial Cells Few /hpf (<5) Urine Bacteria None seen /hpf (None Seen) Urine Mucus Few (None Seen) Urine Glucose Normal mg/dL (Normal) Assessment/Plan Assessment/Plan Conner Tompkins is 69YO M who has a pmHx of sigmoid colon CA and left retinal detachment who presents to the hospital for colectomy. s/p left colon resection with anastomosis with general surgery today. Upon examination patient currently has 1 ISRAEL drain with sanguinous output also with abdominal binder and vertical incision. Patient reports that he does not use any DME he has with ambulation at home. He states that he is retired. He also states that he drinks occasionally, quit smoking, and does not use illicit drugs. Patient denies any chest pain, shortness of breath, fever, chills, lightheadedness, weakness, dizziness, nausea, vomiting, or diarrhea. History of sigmoid colon cancer scheduled Colectomy Left colon resection with anastomosis Alcohol use Ex-smoker History of left retinal detachment 11/16/2024: status post Exploratory laparotomy. Left hemicolectomy. Descending colon rectostomy. f/u with gen surg recommendations 11/17/2024: advance diet per Gen Surg still has NG tube 11/19/2024: Continue advance diet per General surgeon recommendation NGT will be discontinue today. Encourage patient to be out of bed and ambulate. 11/20/2024: Continuing current management. PT to be out of bed and ambulate Discharge planning 11/21/2024: Continue current management. Discharge when clear with surgeon This medical document was created using an electronic medical record system with M*M flurency direct computerized dictation system. Although this document has been carefully reviewed, there may still be some phonetic and typographical errors. These areas are purely typographical due to imperfections of the software programs, and do not reflect any compromise in the patient's medical care. Plan discussed with: Patient Date of Service: November 21, 2024 Billing Provider: JOVANA BARRIOS MD Common Visit Codes: [id number] INP/OBS CARE(HIGH) JOVANA BARRIOS MD November 21, 2024 10:49
--- NOTE | 2024-11-21 12:44 | DVHPN2 ---
Progress Note Date Seen: November 21, 2024 Medical Necessity Reason Pt with a Central, PICC or Fol: No Objective vital signs Vital Sign Date Time Temp Pulse Resp B/P (MAP) Pulse Ox O2 Delivery O2 Flow Rate FiO2 11/21/24 09:00 98.0 79 16 112/81 (91) 95 98.0 11/21/24 08:00 Room Air* 0 21 Total Intake and Output 11/20/24 11/20/24 11/21/24 15:00 23:00 07:00 Intake Total 750 ml 365 ml Output Total 20 ml Balance 730 ml 365 ml medications Current Medications Medications Dose Ordered Sig/Gayle Route Start Time Stop Time Status Last Admin Dose Admin Morphine Sulfate 2 mg Q3HPRN PRN IV 11/15/24 09:15 Hold Acetaminophen/ Hydrocodone Bitart 1 tab Q4HP PRN PO 11/15/24 10:45 Ondansetron HCl 4 mg Q4HP PRN IV 11/15/24 10:45 Acetaminophen 650 mg Q6HP PRN PO 11/15/24 10:45 Morphine Sulfate 2 mg Q4HPRN PRN IV 11/15/24 10:45 Patient Own Medication 1 tab DAILY PO 11/16/24 10:00 UNV Pantoprazole Sodium 40 mg DAILY IV 11/16/24 10:00 11/21/24 09:16 40 MG laboratory and microbiology Laboratory Tests 11/19/24 05:27 11/16/24 04:27 Test 11/19/24 05:27 Range/Units Serum Glucose 97 74-106 mg/dL Problem List/Assessment/Plan Problem List/Assessment/Plan 11/16/24 feels well, not been out of bed yet, abdomen appropriately tenderm drwessing dry, drainage per [place]EL is serous, start ambulation 11/18/24 noflatus but is hungry, abdomen appropriately tender, labs ok,wounds ok,well approximated without infection. has been ambulating. 11/19/24 passed flatus, is hungry, abdomen soft, non distended appropriately tender will dc ngt and sllow po liquids 11/20/24 normal bowel and [id number] function, wound clean and well approximated, abdomen non distended, non tender, will advance dieat he should be able to go home tomorrow or day after 11/21/24 doing well, having normal bowel activity, wound clean, abdomen appropriately tender, will advance diet, he could probably go home tomorrow Plan discussed with: Patient Dietary Evaluation Review Comments: 1. Offer ensure clear when pt's diet is limited to clear liquid. 2. Advance to diet as tolterated when meically feasible. Expected Outcomes/Goals: maintain wt STACEY BACH MD November 21, 2024 12:44
[2024-11-22 01:00] VITALS: BP 99/65; PULSE 77; RESP 18; TEMP 98.3; O2SAT 95
[2024-11-22 05:00] VITALS: BP 111/75; PULSE 78; RESP 18; TEMP 97.7; O2SAT 95
[2024-11-22 08:00] VITALS: PULSE 80; RESP 18; O2SAT 96
[2024-11-22 09:28] VITALS: BP 117/78; PULSE 69; RESP 16; TEMP 98.2; O2SAT 93
--- NOTE | 2024-11-22 10:53 | DVHPN2 ---
Progress Note Date Seen: November 22, 2024 Medical Necessity Reason Pt with a Central, PICC or Fol: No Objective vital signs Vital Sign Date Time Temp Pulse Resp B/P (MAP) Pulse Ox O2 Delivery O2 Flow Rate FiO2 11/22/24 09:28 98.2 69 16 117/78 (91) 93 98.2 11/22/24 08:00 Room Air* 0 21 Total Intake and Output 11/21/24 11/21/24 11/22/24 15:00 23:00 07:00 Intake Total 600 ml 300 ml Output Total 10 ml 30 ml Balance 590 ml 270 ml medications Current Medications Medications Dose Ordered Sig/Gayle Route Start Time Stop Time Status Last Admin Dose Admin Morphine Sulfate 2 mg Q3HPRN PRN IV 11/15/24 09:15 Hold Acetaminophen/ Hydrocodone Bitart 1 tab Q4HP PRN PO 11/15/24 10:45 Ondansetron HCl 4 mg Q4HP PRN IV 11/15/24 10:45 Acetaminophen 650 mg Q6HP PRN PO 11/15/24 10:45 Morphine Sulfate 2 mg Q4HPRN PRN IV 11/15/24 10:45 Patient Own Medication 1 tab DAILY PO 11/16/24 10:00 UNV Pantoprazole Sodium 40 mg DAILY IV 11/16/24 10:00 11/22/24 10:07 40 MG laboratory and microbiology Laboratory Tests 11/19/24 05:27 11/16/24 04:27 Test 11/19/24 05:27 Range/Units Serum Glucose 97 74-106 mg/dL Problem List/Assessment/Plan Problem List/Assessment/Plan 11/16/24 feels well, not been out of bed yet, abdomen appropriately tenderm drwessing dry, drainage per IS[place]EL is serous, start ambulation 11/18/24 noflatus but is hungry, abdomen appropriately tender, labs ok,wounds ok,well approximated without infection. has been ambulating. 11/19/24 passed flatus, is hungry, abdomen soft, non distended appropriately tender will dc ngt and sllow po liquids 11/20/24 normal bowel and [id number] function, wound clean and well approximated, abdomen non distended, non tender, will advance dieat he should be able to go home tomorrow or day after 11/21/24 doing well, having normal bowel activity, wound clean, abdomen appropriately tender, will advance diet, he could probably go home tomorrow 11/22/24 FEELS VERY WELL, NORMAL BOWEL AND BLADDER FUNCTION, WOUND OK, ABDOMEN NON TENDER, MAY BE DISCHARGED Plan discussed with: Patient Dietary Evaluation Review Comments: 1. Offer ensure clear when pt's diet is limited to clear liquid. 2. Advance to diet as tolterated when meically feasible. Expected Outcomes/Goals: maintain wt STACEY BCAH MD November 22, 2024 10:53
[2024-11-22] MEDS ORDERED: HYDR-4902 PO (11:55)
--- NOTE | 2024-11-22 11:59 | DVHDS2 ---
Discharge Summary Date of Admission November 15, 2024 at 10:39 Date of Discharge: November 22, 2024 Admitting Diagnosis History of sigmoid colon cancer scheduled Colectomy Left colon resection with anastomosis Alcohol use Ex-smoker History of left retinal detachment Labs/Diagnostic Data: Laboratory Results Test 11/19/24 05:27 11/16/24 04:27 11/14/24 10:10 Sodium Level 139 mmol/L (136-145) Potassium Level 3.8 mmol/L (3.5-5.1) Chloride Level 103 mmol/L (98-107) Carbon Dioxide Level 24 mmol/L (20-31) Anion Gap 12 (5-15) Blood Urea Nitrogen 15 mg/dL (9-23) Creatinine 0.89 mg/dL (0.700-1.30) Glomerular Filtration Rate Calc 92 mL/min (>90) BUN/Creatinine Ratio 16.9 (10.0-20.0) Serum Glucose 97 mg/dL (74-106) Calcium Level 9.7 mg/dL (8.7-10.4) Magnesium Level 2.0 mg/dL (1.6-2.6) Total Bilirubin 0.9 mg/dL (0.2-1.0) Aspartate Amino Transferase (AST) 17 U/L (13-40) Alanine Aminotransferase (ALT) 15 U/L (7-40) Alkaline Phosphatase 87 U/L (46-116) Total Protein 7.4 g/dL (5.7-8.2) Albumin 4.4 g/dL (3.2-4.8) White Blood Count 13.3 10^3/uL (4.4-10.8) Red Blood Count 4.73 10^6/uL (4.5-5.90) Hemoglobin 14.9 g/dL (13.5-17.5) Hematocrit 43.8 % (41.0-53.0) Mean Corpuscular Volume 92.5 fL (80.0-100.0) Mean Corpuscular Hemoglobin 31.6 pg (28.0-32.0) Mean Corpuscular Hemoglobin Concent 34.1 g/dL (32.0-36.0) Red Cell Distribution Width 13.7 % (11.8-14.3) Platelet Count 176 10^3/uL (140-450) Mean Platelet Volume 9.4 fL (6.9-10.8) Neutrophils (%) (Auto) 81.7 % (37.0-80.0) Lymphocytes (%) (Auto) 7.1 % (10.0-50.0) Monocytes (%) (Auto) 11.0 % (0.0-12.0) Eosinophils (%) (Auto) 0.0 % (0.0-7.0) Basophils (%) (Auto) 0.2 % (0.0-2.0) Neutrophils # (Auto) 10.8 10 ^3/uL (1.6-8.6) Lymphocytes # (Auto) 0.9 10 ^3/uL (0.4-5.4) Monocytes # (Auto) 1.5 10 ^3/uL (0-1.3) Eosinophils # (Auto) 0 10 ^3/uL (0-0.8) Basophils # (Auto) 0 10 ^3/uL (0-0.2) Nucleated Red Blood Cells 0.0 % Prothrombin Time 10.9 sec (9.3-11.8) Prothrombin Time INR 1.03 (0.9-1.15) Activated Partial Thromboplast Time 31.8 SEC (24.5-34.5) Urine Color Yellow (Yellow) Urine Clarity Clear (Clear) Urine pH 5.0 (5.0-9.0) Urine Specific [place] 1.023 (1.001-1.035) Urine Protein Negative (Negative) Urine Ketones 2+ (Negative) Urine Blood Trace /uL (Negative) Urine Nitrite Negative (Negative) Urine Bilirubin Negative (Negative) Urine Urobilinogen Normal mg/dL (Negative) Urine Leukocyte Esterase Negative /uL (Negative) Urine RBC <1 /hpf (0 - 3) Urine Microscopic WBC 1 /HPF (0-3) Urine Squamous Epithelial Cells Few /hpf (<5) Urine Bacteria None seen /hpf (None Seen) Urine Mucus Few (None Seen) Urine Glucose Normal mg/dL (Normal) Other Laboratory Tests 11/19/24 05:27 11/16/24 04:27 Brief Hx & Hospital Course: This is a 69 years old male with past medical history of sigmoid cancer and left retinal detachment come to emergency department for schedule colectomy. The patient subsequently had a left colon resection with anastomosis. The patient had a [place] drain. The patient was kept NPO and subsequently switched to TPN then clear liquid diet and soft diet. The patient tolerated diet well. The patient had been ambulate and passing gas. Dr. Sousa, the surgeon release the patient from their service so today I am going to discharge the patient home. Advised the patient to follow up with the surgeon per schedule. Follow up with primary care physician 1-2 weeks. Activity as tolerated. Diet per home diet. Do not lift any object more than 10 lb for two weeks. ISRAEL management per surgeon. Physical exam: HEENT: Normocephalic atraumatic pupils equal react to light and accommodation. Extraocular muscles intact, conjunctiva pink, oropharynx moist, no thrush, no exudate. Lymphatic: No lymphadenopathy Cardiovascular exam: S1, S2 was heard. No murmurs, rubs, gallops Lung: Clear on auscultation bilaterally, no wheeze, rale, rhonchi. GI: Abdominal soft, nondistended, nontenderness, positive bowel sounds. Extremity: No crepitus, cyanosis, edema. Pedal pulses present bilateral. Full range of motion. Skin: Normal turgor, no rash. Psych: Alert, oriented x3. Neurology: No focal deficits, cranial nerve II to XII grossly intact. This medical document was created using an electronic medical record system with [employer] direct computerized dictation system. Although this document has been carefully reviewed, there may still be some phonetic and typographical errors. These areas are purely typographical due to imperfections of the software programs, and do not reflect any compromise in the patient's medical care. Condition at Discharge: Stable Final Diagnosis/Problems List History of sigmoid colon cancer status post Colectomy Left colon resection with anastomosis Alcohol use Ex-smoker History of left retinal detachment Discharge Disposition: Home Discharge Instruct/Medications Diet: Regular Activity: No Restrictions, As Tolerated Follow Up/Referral: pcp 1-2 weeks Medications: [place] 5/325 q4hPRN for pain Resume home meds Discharge Statement: "Patient was advised to return to the ER or call 911 if any headaches, dizziness, shortness of breath, chest pain, abdominal pain, bleeding, fevers, or worsening of medical condition. Patient was counseled about treatment plan, medications, possible side effects, patient�verbalized understanding. All questions were answered to the best of my ability. This discharge took greater then 30 minutes in planning, reviewing documentation, counseling the patient, and discussing with other team members." ASSESSMENT ASSESSMENT Assessment Colon resection Date of Service: November 22, 2024 Billing Provider: JOVANA BARRIOS MD Common Visit Codes: 82123-KOY/OBS DISCH DAY >30min JOVANA BARRIOS MD November 22, 2024 11:59
[2024-11-22 13:00] VITALS: BP 111/78; PULSE 60; RESP 19; TEMP 97.9; O2SAT 95
[2024-11-22 13:43] VITALS: BP 111/78; PULSE 60; RESP 19; TEMP 97.9; O2SAT 95
== END 2024-11-22 15:35 | disposition home or self-care (01) | DRG 331 ==
LOC: SUR 06:05 → OVERFLOW 10:39 → CENTRAL 15:20
PROVIDERS: ADMIT Internal Medicine; ATTEND Internal Medicine
PROC: 0DTG0ZZ Resection of Left Large Intestine, Open Approach (ICD-10-PCS; principal; 2024-11-15 07:23)
DX: C18.7 Malignant neoplasm of sigmoid colon (principal); F10.90 Alcohol use, unspecified, uncomplicated; Z87.891 Personal history of nicotine dependence; Z83.3 Family history of diabetes mellitus; Z79.899 Other long term (current) drug therapy; Y90.9 Presence of alcohol in blood, level not specified
CPT/HCPCS: 36415; 80048; 80053; 81001; 83735; 85025; 85610; 85730; 86850; 86900; 86901; 97110; 97116; 97163; 97530; G0378; J0131; J0171; J1100; J1885; J2003; J2405; J2470; J2704; J3490

== ENCOUNTER 2024-12-26 10:07 | Outpatient (CLI) | payer OTHER ==
[~2024-12-26 10:07] MED LIST changes: +HYDR-4902 PO
[2024-12-26 10:54] LABS: Basophils # (auto) 0.1 10 ^3/uL (0-0.2); Basophils % (auto) 1.1 % (0.0-2.0); Eosinophils # (auto) 0.3 10 ^3/uL (0-0.8); Eosinophils % (auto) 6.2 % (0.0-7.0); Hematocrit 42.7 % (41.0-53.0); Hemoglobin 14.6 g/dL (13.5-17.5); Lymphocytes # (auto) 1.9 10 ^3/uL (0.4-5.4); Lymphocytes % (auto) 33.7 % (10.0-50.0); Mean Corpuscular Hemoglobin 31.9 pg (28.0-32.0); Mean Corpuscular Hgb Conc. 34.3 g/dL (32.0-36.0); Monocytes # (auto) 0.9 10 ^3/uL (0-1.3); Monocytes % (auto) 15.6 % (0.0-12.0); Neutrophils # (auto) 2.4 10 ^3/uL (1.6-8.6); Neutrophils % (auto) 43.4 % (37.0-80.0); Nucleated Red Blood Cells % 0.2 %; Platelet Count (auto) 189 10^3/uL (140-450); Red Blood Cells 4.59 10^6/uL (4.5-5.90); Red Cell Distribution Width 14.3 % (11.8-14.3); White Blood Cell 5.6 10^3/uL (4.4-10.8)
[2024-12-26 11:32] LABS: Alanine Aminotransferase 21 U/L (7-40); Alkaline Phosphatase 100 U/L (46-116); Anion Gap 10 (5-15); BUN/Creatinine Ratio 15.1 (10.0-20.0); Blood Urea Nitrogen 13 mg/dL (9-23); Carbon Dioxide 25 mmol/L (20-31); Chloride 104 mmol/L (98-107); Glucose 93 mg/dL (74-106); Potassium 4.1 mmol/L (3.5-5.1); Sodium 139 mmol/L (136-145); Total Protein 7.3 g/dL (5.7-8.2)
[2024-12-26 11:33] LABS: Albumin 4.5 g/dL (3.2-4.8); Aspartate Aminotransferase 20 U/L (0-34); Bilirubin, Total 0.7 mg/dL (0.2-1.0)
== END 2024-12-26 17:00 | disposition home or self-care (01) ==
LOC: LAB 10:07
PROVIDERS: ATTEND Student in an Organized Health Care Education/Training Program
DX: C18.7 Malignant neoplasm of sigmoid colon (principal)
CPT/HCPCS: 36415; 80053; 82378; 83615; 85025

== ENCOUNTER → 2025-01-16 | Outpatient (CLI) | payer OTHER ==
[2025-01-16 08:17] LABS: Hematocrit 42.9 % (41.0-53.0); Hemoglobin 14.4 g/dL (13.5-17.5); Mean Corpuscular Hemoglobin 31.4 pg (28.0-32.0); Mean Corpuscular Volume 93.5 fL (80.0-100.0)
[2025-01-16 08:33] LABS: Alanine Aminotransferase 13 U/L (7-40); Albumin 4.4 g/dL (3.2-4.8); Alkaline Phosphatase 111 U/L (46-116); Anion Gap 7 (5-15); BUN/Creatinine Ratio 14.0 (10.0-20.0); Bilirubin, Total 0.6 mg/dL (0.2-1.0); Blood Urea Nitrogen 13 mg/dL (9-23); Calcium 9.7 mg/dL (8.7-10.4); Carbon Dioxide 28 mmol/L (20-31); Chloride 106 mmol/L (98-107); Glucose 104 mg/dL (74-106); Potassium 4.3 mmol/L (3.5-5.1); Sodium 141 mmol/L (136-145); Total Protein 6.9 g/dL (5.7-8.2)
[2025-01-16 09:38] LABS: Total Cells Counted 100.0 (100)
== END | disposition home or self-care (01) ==
LOC: LAB 07:51
PROVIDERS: ATTEND Student in an Organized Health Care Education/Training Program
DX: C18.7 Malignant neoplasm of sigmoid colon (principal)
CPT/HCPCS: 36415; 80053; 82378; 83615; 85007; 85027

== ENCOUNTER 2025-01-27 09:03 | Outpatient (CLI) | payer OTHER ==
[2025-01-27 10:16] LABS: Hematocrit 44.9 % (41.0-53.0); Hemoglobin 15.5 g/dL (13.5-17.5); Mean Corpuscular Hemoglobin 32.1 pg (28.0-32.0); Mean Corpuscular Volume 93.1 fL (80.0-100.0); Nucleated Red Blood Cells % 0.2 %
[2025-01-27 10:22] LABS: Alanine Aminotransferase 16 U/L (7-40); Albumin 4.6 g/dL (3.2-4.8); Anion Gap 10 (5-15); BUN/Creatinine Ratio 15.5 (10.0-20.0); Blood Urea Nitrogen 16 mg/dL (9-23); Calcium 10.0 mg/dL (8.7-10.4); Carbon Dioxide 27 mmol/L (20-31); Chloride 101 mmol/L (98-107); Glucose 99 mg/dL (74-106); Potassium 3.5 mmol/L (3.5-5.1); Sodium 138 mmol/L (136-145); Total Protein 7.2 g/dL (5.7-8.2); Triglycerides 114 mg/dL (< 150)
[2025-01-27 10:23] LABS: Alkaline Phosphatase 127 U/L (46-116); Bilirubin, Total 0.8 mg/dL (0.2-1.0); Cholesterol 154 mg/dL (< 200); HDL Cholesterol 51 mg/dL (40-59)
[2025-01-27 10:44] LABS: Urine Protein, UAD TRACE (Negative)
== END 2025-01-27 17:00 | disposition home or self-care (01) ==
LOC: LAB 09:03
PROVIDERS: ATTEND Nurse Practitioner
DX: I10 Essential (primary) hypertension (principal); E78.5 Hyperlipidemia, unspecified; R73.9 Hyperglycemia, unspecified
CPT/HCPCS: 36415; 80053; 80061; 81001; 83036; 84153; 84443; 85025

== ENCOUNTER 2025-02-06 08:23 | Outpatient (CLI) | payer OTHER ==
[2025-02-06 09:15] LABS: Alanine Aminotransferase 15 U/L (7-40); Albumin 4.3 g/dL (3.2-4.8); Alkaline Phosphatase 110 U/L (46-116); Anion Gap 8 (5-15); BUN/Creatinine Ratio 12.6 (10.0-20.0); Bilirubin, Total 0.7 mg/dL (0.2-1.0); Blood Urea Nitrogen 11 mg/dL (9-23); Calcium 9.7 mg/dL (8.7-10.4); Carbon Dioxide 28 mmol/L (20-31); Chloride 107 mmol/L (98-107); Glucose 99 mg/dL (74-106); Potassium 3.7 mmol/L (3.5-5.1); Sodium 143 mmol/L (136-145); Total Protein 6.6 g/dL (5.7-8.2)
[2025-02-06 09:19] LABS: Hematocrit 41.2 % (41.0-53.0); Hemoglobin 14.1 g/dL (13.5-17.5); Mean Corpuscular Hemoglobin 32.3 pg (28.0-32.0); Mean Corpuscular Volume 94.5 fL (80.0-100.0)
[2025-02-06 09:52] LABS: Total Cells Counted 100.0 (100)
== END 2025-02-06 17:00 | disposition home or self-care (01) ==
LOC: LAB 08:23
PROVIDERS: ATTEND Student in an Organized Health Care Education/Training Program
DX: C18.7 Malignant neoplasm of sigmoid colon (principal)
CPT/HCPCS: 36415; 80053; 82378; 83615; 85007; 85027

== ENCOUNTER 2025-02-10 14:34 | Outpatient (CLI) | payer OTHER | END 2025-02-10 17:00 | disposition home or self-care (01) | LOC: LAB 14:34 | PROVIDERS: ATTEND Student in an Organized Health Care Education/Training Program | DX: C18.7 Malignant neoplasm of sigmoid colon (principal) | CPT/HCPCS: 82378 ==

== ENCOUNTER 2025-03-06 08:30 | Outpatient (CLI) | payer OTHER ==
[2025-03-06 08:54] LABS: Hematocrit 42.3 % (41.0-53.0); Hemoglobin 14.1 g/dL (13.5-17.5); Mean Corpuscular Hemoglobin 32.4 pg (28.0-32.0); Mean Corpuscular Volume 97.4 fL (80.0-100.0)
[2025-03-06 09:21] LABS: Alanine Aminotransferase 17 U/L (7-40); Albumin 4.3 g/dL (3.2-4.8); Alkaline Phosphatase 113 U/L (46-116); Anion Gap 12 (5-15); BUN/Creatinine Ratio 12.2 (10.0-20.0); Bilirubin, Total 0.5 mg/dL (0.2-1.0); Blood Urea Nitrogen 10 mg/dL (9-23); Calcium 9.2 mg/dL (8.7-10.4); Carbon Dioxide 25 mmol/L (20-31); Chloride 107 mmol/L (98-107); Glucose 96 mg/dL (74-106); Potassium 3.9 mmol/L (3.5-5.1); Sodium 144 mmol/L (136-145); Total Protein 6.7 g/dL (5.7-8.2)
[2025-03-06 09:31] LABS: Total Cells Counted 100.0 (100)
[2025-03-06 09:32] LABS: Anisocytosis Slight
== END 2025-03-06 17:00 | disposition home or self-care (01) ==
LOC: LAB 08:30
PROVIDERS: ATTEND Student in an Organized Health Care Education/Training Program
DX: C18.7 Malignant neoplasm of sigmoid colon (principal)
CPT/HCPCS: 36415; 80053; 82378; 83615; 85007; 85027

== ENCOUNTER → 2025-03-14 | Outpatient (CLI) | payer OTHER ==
[2025-03-14 16:04] LABS: Hematocrit 43.2 % (41.0-53.0); Hemoglobin 14.8 g/dL (13.5-17.5); Mean Corpuscular Hemoglobin 33.3 pg (28.0-32.0); Mean Corpuscular Volume 97.1 fL (80.0-100.0); Nucleated Red Blood Cells % 0.0 %
[2025-03-14 16:22] LABS: Alanine Aminotransferase 16 U/L (7-40); Albumin 4.4 g/dL (3.2-4.8); Anion Gap 8 (5-15); BUN/Creatinine Ratio 12.3 (10.0-20.0); Bilirubin, Total 0.6 mg/dL (0.2-1.0); Blood Urea Nitrogen 10 mg/dL (9-23); Calcium 9.3 mg/dL (8.7-10.4); Carbon Dioxide 27 mmol/L (20-31); Chloride 106 mmol/L (98-107); Glucose 84 mg/dL (74-106); Potassium 4.0 mmol/L (3.5-5.1); Sodium 141 mmol/L (136-145); Total Protein 7.5 g/dL (5.7-8.2)
[2025-03-14 16:23] LABS: Alkaline Phosphatase 116 U/L (46-116)
== END | disposition home or self-care (01) ==
LOC: LAB 15:42
PROVIDERS: ATTEND Student in an Organized Health Care Education/Training Program
DX: C18.7 Malignant neoplasm of sigmoid colon (principal)
CPT/HCPCS: 36415; 80053; 82378; 83615; 85025

== ENCOUNTER 2025-03-28 09:12 | Outpatient (CLI) | payer OTHER ==
[2025-03-28 09:40] LABS: Hematocrit 43.1 % (41.0-53.0); Hemoglobin 14.8 g/dL (13.5-17.5); Mean Corpuscular Hemoglobin 33.3 pg (28.0-32.0); Mean Corpuscular Volume 96.5 fL (80.0-100.0); Nucleated Red Blood Cells % 0.1 %
[2025-03-28 10:14] LABS: Alanine Aminotransferase 12 U/L (7-40); Albumin 4.4 g/dL (3.2-4.8); Anion Gap 11 (5-15); BUN/Creatinine Ratio 14.3 (10.0-20.0); Blood Urea Nitrogen 12 mg/dL (9-23); Calcium 9.3 mg/dL (8.7-10.4); Carbon Dioxide 26 mmol/L (20-31); Chloride 104 mmol/L (98-107); Glucose 100 mg/dL (74-106); Potassium 4.6 mmol/L (3.5-5.1); Sodium 141 mmol/L (136-145); Total Protein 7.2 g/dL (5.7-8.2)
[2025-03-28 10:15] LABS: Bilirubin, Total 0.4 mg/dL (0.2-1.0)
[2025-03-28 10:19] LABS: Alkaline Phosphatase 125 U/L (46-116)
== END 2025-03-28 17:00 | disposition home or self-care (01) ==
LOC: LAB 09:12
PROVIDERS: ATTEND Nurse Practitioner
DX: I10 Essential (primary) hypertension (principal); R73.9 Hyperglycemia, unspecified
CPT/HCPCS: 36415; 80053; 85025